=== PATIENT | male | born 1940 | race Caucasian/White ===

== ENCOUNTER 2017-01-17 22:09 | Inpatient (IN) | payer OTHER, MEDICARE ==
[~2017-01-17] VITALS: Ht 175.3 cm; Wt 86.0 kg
[2017-01-17 05:40] VITALS: BP 132/62; PULSE 95; RESP 18; TEMP 98.1; O2SAT 95
[2017-01-17 22:11] VITALS: BP 172/71; PULSE 107; RESP 16; TEMP 99; O2SAT 92
--- NOTE | 2017-01-17 22:17 | PD ---
Physical Exam Time Seen by Provider: 22:15 Narrative 76 y/o male presents for evaluation of cough and congestion for one day. No fevers. 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 Sees Dr. Mayfield. Vital signs reviewed. Seen at triage desk. Awaiting bed placement. Data Data Last Documented VS Vital Signs Date Time Temp Pulse Resp B/P Pulse Ox O2 Delivery O2 Flow Rate FiO2 01/17/17 22:11 99.0 107 16 172/71 92 MDM Medical Record Reviewed: Yes Supervised Visit with CONSUELO: No Darrick Petit January 17, 2017 22:16
[2017-01-17 23:08] VITALS: O2SAT 99
--- NOTE | 2017-01-17 23:15 | RADRPT ---
EXAM DATE/TIME: 01/17/2017 22:54 [place] COMPARISON: No previous studies available for comparison. INDICATIONS : Cough and congestion. MEDICAL HISTORY : Pre-Leukemia. SURGICAL HISTORY : None. ENCOUNTER: Initial ACUITY: 1 day PAIN SCORE: 0/10 LOCATION: Bilateral chest FINDINGS: A single view of the chest demonstrates the lungs to be symmetrically aerated without evidence of mas s, infiltrate or effusion. The cardiomediastinal contours are unremarkable. Osseous structures are intact. CONCLUSION: No acute disease. There is no evidence of pneumonia. Bernard Hughes MD on January 17, 2017 at 23:12 Board Certified Radiologist. This report was verified electronically.
[2017-01-17 23:16] LABS: BLOOD, URINE NEG (NEG); GLUCOSE,URINE NEG (NEG); KETONE, URINE NEG (NEG); NITRITE,URINE NEG (NEG); URINE COLOR YELLOW (YELLW/STRAW)
[2017-01-17 23:18] LABS: COMMENT (UR) CULT NOT INDICATED; CULTURE IF INDICATED CULT NOT INDICATED
[2017-01-17 23:18] LABS: BASOPHIL % 0.7 % (0.0-2.0); EOSINOPHIL % 1.5 % (0.0-4.0); LYMPHOCYTE # 0.5 TH/MM3 (1.0-4.8); MEAN CELL VOLUME 86.1 FL (80.0-100.0); MEAN CORPUSCULAR HEMOGLOBIN 28.6 PG (27.0-34.0); MEAN CORPUSCULAR HGB CONC 33.3 % (32.0-36.0); MONO % 4.1 % (0.0-8.0); NEUT % 32.7 % (16.0-70.0); PLATELET COUNT 48 TH/MM3 (150-450); RED BLOOD COUNT 2.36 MIL/MM3 (4.50-5.90); RED CELL DISTRIBUTION WIDTH 18.6 % (11.6-17.2); WHITE BLOOD COUNT 0.8 TH/MM3 (4.0-11.0)
[2017-01-17 23:20] LABS: HEMO FLAGS AUTO DIFF
[2017-01-17 23:22] LABS: AUTOMATED NEUTROPHIL # 0.3 TH/MM3 (1.8-7.7); HEMATOCRIT 20.3 % (39.0-51.0)
--- NOTE | 2017-01-17 23:30 | PD ---
HPI Chief Complaint: Cold / Flu Symptoms Time Seen by Provider: 22:24 Travel History International Travel<30 days: No Contact w/Intl Traveler<30days: No Traveled to known affect area: No History of Present Illness HPI The patient is a 76 year old male who presents to the [facility] emergency department with a history of postnasal drip, congestion that he reports began earlier today. He reports that he feels like mucous is stuck in his throat. He reports that he took DayQuil, however does not seem to help. He reports that he has a slightly sore throat associated with this. He denies having any chest pain, chest pressure, or shortness of breath. He denies having any fevers associated with this. He does however report that he has been on an antibiotic for the last week related to a skin infection on his legs. He unfortunately cannot recall the name of the antibiotic. The patient's other history is also complicated by having a myelodysplastic syndrome currently under chemotherapy over the last week. He reports that he completed the last dose of chemotherapy today. He reports that 2 weeks ago he did have 2 units of packed red blood cells administered as he has been experiencing pancytopenia related to the myelodysplastic syndrome. His oncologist is Dr. Mayfield. Otherwise on review of systems, the patient denies any neck pain, abdominal pain , vomiting, diarrhea, urinary symptoms, or neurologic symptoms. [facility] Past Medical History Narrative Medical The patient's past medical history is significant for eczema, benign prostatic hypertrophy, history of myelodysplastic syndrome currently on chemotherapy, history of COPD, history of acid reflux, history of being hard of hearing, history of hypertension, peripheral arterial disease. Hx Anticoagulant Therapy: Yes (ASA) Cancer: Yes (MDS/BONE CA) Chemotherapy: Yes Diminished Hearing: Yes Tetanus Vaccination: Unknown Influenza Vaccination: No Past Surgical History Narrative Surgical The patient's past surgical history is significant for carpal tunnel release on the left, vasectomy, knee surgery on the right. Social History Alcohol Use: No Tobacco Use: No Substance Use: No Allergies-Medications (Allergen,Severity, Reaction): Coded Allergies: Zofran (Verified Allergy, Severe, Hives, 01/17/17) Review of Systems Except as stated in HPI: all other systems reviewed are Neg General / Constitutional: No: Fever, Chills Eyes: No: Visual changes HENT: Positive: Sore Throat, Rhinorrhea, Congestion, No: Headaches Cardiovascular: No: Chest Pain or Discomfort Respiratory: Positive: Cough, No: Shortness of Breath Gastrointestinal: No: Abdominal Pain Genitourinary: No: Dysuria Musculoskeletal: No: Pain Skin: No Rash Neurologic: No: Weakness Psychiatric: No: Depression Endocrine: No: Polydipsia Hematologic/Lymphatic: No: Easy Bruising Physical Exam Narrative General: The patient is a well-developed well-nourished male in no acute distress. Head and Neck exam: Head is normocephalic atraumatic. Eyes: EOMI, pupils are equal round and reactive to light. Nose: Midline septum with pink mucous membranes Mouth: Dentition unremarkable. Moist mucus membranes. Posterior oropharynx is mildly erythematous. No tonsillar hypertrophy. Uvula midline. Airway patent. Neck: No palpable lymphadenopathy. No nuchal rigidity. No thyromegaly. Cardiovascular: Regular rate and rhythm without murmurs, gallops, or rubs. Lungs: Clear to auscultation bilaterally. No wheezes, rhonchi, or rales. Abdomen: Soft, without tenderness to palpation in all 4 quadrants of the abdomen. No guarding, rebound, or rigidity. Normal bowel sounds are audible. No tenderness on palpation of McBurney's point. Negative Deluca's sign. Extremities: No clubbing, cyanosis, or edema. No calf tenderness on palpation. Back: No costovertebral angle tenderness to palpation. Neurologic Exam: Grossly nonfocal. Skin Exam: The patient on examination of bilateral lower extremities is noted to have areas of abrasion, erythematous papules/areas of excoriation, currently on antibiotic for this. No signs of cellulitis, drainage, pointing, or vesicle formation. Data Data Last Documented VS Vital Signs Date Time Temp Pulse Resp B/P Pulse Ox O2 Delivery O2 Flow Rate FiO2 01/17/17 23:08 99 Room Air 01/17/17 22:11 99.0 107 16 172/71 Orders Complete Blood Count With Diff (01/17/17 22:42) Basic Metabolic Panel (Bmp) (01/17/17 22:42) Urinalysis - C+S If Indicated (01/17/17 22:42) Chest, Single Ap (01/17/17 22:42) Iv Access Insert/Monitor (01/17/17 22:42) Ecg Monitoring (01/17/17 22:42) Oximetry (01/17/17 22:42) Cefepime Inj (Maxipime Inj) (01/17/17 23:43) Blood Culture (01/17/17 23:43) Type And Screen (01/17/17 23:43) Red Blood Cells (Rbc) (01/17/17 23:43) Blood Product Administration .UPON TRANSFUSION (01/17/17 23:43) Sodium Chlor 0.9% 250 Ml Inj (Ns 250 Ml (01/17/17 23:45) Admit Order (Ed Use Only) (01/18/17 00:58) Labs Laboratory Tests Test 01/17/17 01/17/17 01/17/17 22:00 22:10 23:58 Sodium Level 138 MEQ/L Potassium Level 4.7 MEQ/L Chloride Level 104 MEQ/L Carbon Dioxide Level 27.9 MEQ/L Anion Gap 6 MEQ/L Blood Urea Nitrogen 20 MG/DL Creatinine 1.01 MG/DL Estimat Glomerular Filtration 72 ML/MIN Rate Random Glucose 133 MG/DL Calcium Level 8.5 MG/DL White Blood Count 0.8 TH/MM3 Red Blood Count 2.36 MIL/MM3 Hemoglobin 6.8 GM/DL Hematocrit 20.3 % Mean Corpuscular Volume 86.1 FL Mean Corpuscular Hemoglobin 28.6 PG Mean Corpuscular Hemoglobin 33.3 % Concent Red Cell Distribution Width 18.6 % Platelet Count 48 TH/MM3 Mean Platelet Volume 8.4 FL Neutrophils (%) (Auto) 32.7 % Lymphocytes (%) (Auto) 61.0 % Monocytes (%) (Auto) 4.1 % Eosinophils (%) (Auto) 1.5 % Basophils (%) (Auto) 0.7 % Neutrophils # (Auto) 0.3 TH/MM3 Lymphocytes # (Auto) 0.5 TH/MM3 Monocytes # (Auto) 0.0 TH/MM3 Eosinophils # (Auto) 0.0 TH/MM3 Basophils # (Auto) 0.0 TH/MM3 CBC Comment AUTO DIFF Differential Total Cells 25 Counted Neutrophils % (Manual) 36 % Lymphocytes % 60 % Eosinophils % 4 % Neutrophils # (Manual) 0.3 TH/MM3 Nucleated Red Blood Cells 12 /100 WBC Differential Comment FINAL DIFF MANUAL Platelet Estimate LOW Platelet Morphology Comment NORMAL Tear Drop Cells 1+ Ovalocytes 2+ Urine Color YELLOW Urine Turbidity CLEAR Urine pH 6.0 Urine Specific [place] 1.016 Urine Protein NEG mg/dL Urine Glucose (UA) NEG mg/dL Urine Ketones NEG mg/dL Urine Occult Blood NEG Urine Nitrite NEG Urine Bilirubin NEG Urine Urobilinogen LESS THAN 2.0 MG/DL Urine Leukocyte Esterase NEG Urine RBC LESS THAN 1 /hpf Urine WBC LESS THAN 1 /hpf Microscopic Urinalysis Comment CULT NOT INDICATED Blood Type A POSITIVE Antibody Screen NEGATIVE Crossmatch Leukocyte-Reduced Red Blood Cells Blood Bank Comment MDM Medical Decision Making Medical Screen Exam Complete: Yes Emergency Medical Condition: Yes Medical Record Reviewed: Yes Interpretation(s) Last Impressions Chest X-Ray 01/17/17 2242 Signed Impressions: Service Date/Time: Tuesday, January 17, 2017 22:54 - CONCLUSION: No acute disease. There is no evidence of pneumonia. Bernard Hughes MD Differential Diagnosis Upper respiratory infection with postnasal drip, versus pneumonia, versus neutropenia Narrative Course During the course of the patients emergency department visit, the patients history, examination, and differential diagnosis were reviewed with the patient. The patient had IV access obtained and blood work sent for analysis. The patient was placed on a bus monitor with oximetry and blood pressure monitoring. A chest x-ray was ordered, CBC, BMP was ordered. The patients laboratory studies were reviewed and remarkable for a white count of 0.8, hemoglobin 6.8, platelets 48, with neutrophils 32.7, lymphocytes 61, neutrophil number is 0.3, thus the patient is neutropenic, BMP is remarkable for a BUN of 20, glucose 133, urinalysis is unremarkable. Radiology studies were reviewed and remarkable for a chest x-ray that shows no acute abnormality. Given the patient's anemia and neutropenia, the patient was typed and crossmatched for 2 units of packed red blood cells. The patient was also given cefepime as broad-spectrum antibiotic coverage for neutropenia. The patients results were discussed with the patient, including the plan of care. I explained that further testing and/ or monitoring is indicated based on the patients history, examination, and/ or laboratory findings. Therefore, I recommended admission for additional evaluation. The patient expressed understanding and was agreeable with this plan. The patient was admitted to the hospital in stable condition and [facility] Physician Communication Physician Communication The patient's case was discussed with Dr. Monroy who did agree to admit the patient for further evaluation and treatment at this time. Diagnosis Primary Impression: URI (upper respiratory infection) Qualified Code: J06.9 - Upper respiratory tract infection, unspecified type Additional Impression: Neutropenia Qualified Code: D70.1 - Chemotherapy-induced neutropenia Admitting Information Admitting Physician Requests: Admit Bridgette Giraldo MD January 17, 2017 23:29
[2017-01-17 23:34] LABS: BICARBONATE 27.9 MEQ/L (21.0-32.0); POTASSIUM 4.7 MEQ/L (3.5-5.1)
[2017-01-17] MEDS ORDERED: CEFEPIME INJ 2,000 MG in SODIUM CHLORIDE 0.9% INJ 100 ML IV STA (23:43)
[2017-01-17] MEDS ORDERED: SODIUM CHLOR 0.9% 250 ML INJ 250 ML IV ONE (23:45)
[2017-01-18] VITALS (11 sets, daily range): BP systolic 138–172; BP diastolic 62–78; PULSE 63–100; RESP 15–20; TEMP 97.7–98.9; O2SAT 93–97
[2017-01-18 00:49] LABS: CORRECTED NUCLEATED RBC 12 /100 WBC (0-0); EOSINOPHILS 4 % (0-4); NEUTROPHIL # MANUAL DIFF 0.3 TH/MM3 (1.8-7.7); POLYS (SEG NEUTROPHILS) 36 % (16-70); WBC DIFF SAMPLE 25
[2017-01-18 00:51] LABS: OVALOCYTES 2+ (NORMAL); PLATELET ESTIMATE SMEAR LOW (NORMAL); PLATELET MORPHOLOGY NORMAL (NORMAL); SCAN/DIFF FINAL DIFF MANUAL; TEARDROP RBCS 1+ (NORMAL)
[2017-01-18] MEDS ORDERED: SODIUM CHLORIDE 0.9% FLUSH 10 ML FLUSH IV FLUSH PRN (01:45)
[2017-01-18] MEDS ORDERED: NALOXONE HCL 0.4 MG/ML AMP IV PRN (01:45)
[2017-01-18] MEDS ORDERED: FUROSEMIDE 20 MG/2 ML VIAL IV PUSH PRN (02:45)
--- NOTE | 2017-01-18 03:51 | HHI.HP ---
[facility] Bay Cox MD Admission Diagnosis Neutropenia associated with anemia and upper repiratory infection Diagnoses: (1) Pancytopenia Chief Complaint: productive cough Travel History International Travel<30 Days: No Contact w/Intl Traveler <30 Da: No Traveled to Known Affected Are: No History of Present Illness Written by Charlotte Douglass, acting as scribe for Dr. Monroy on 01/18/17 at 03:57. Mr. 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 The patient is seen in his hospital room. He states "I'm on chemotherapy and I got a cold". Yesterday was last day of chemotherapy for 7 day treatment (on 1 week, off 4 weeks). CXR in ER was negative for acute disease and there's no evidence of pneumonia. Symptoms are severe and not relieved with OTC cold medicines. Symptoms include postnasal drip, sore throat, productive cough with clear sputum. He denies fever. He reports that his blood counts have been low because of chemotherapy and he has received blood transfusions as an outpatient. He also denies any nausea, vomiting, diarrhea, black or red stool, dysuria, or hematuria. 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 Past Surgical History Cyst removed from back of knee . Reported Medications awaiting med rec . Allergies: Coded Allergies: Zofran (Verified Allergy, Severe, Hives, 01/17/17) Active Ordered Medications Current Medications Cefepime HCl 2000 mg/Sodium Chloride 100 ml @ 200 mls/hr ONCE STAT IV Last administered on 01/18/17t 01:04; Start 01/17/17 at 23:43; Stop 01/18/17 at 00:12 ; Status DC Sodium Chloride (NS 250 ml Inj) 250 ml @ 15 mls/hr ONCE ONCE IV Last administered on 01/18/17 01:23; Start 01/17/17 at 23:45; Stop 01/18/17 at 16:24 Sodium Chloride (NS Flush) 2 ml UNSCH PRN IV FLUSH FLUSH AFTER USING IV ACCESS ; Start 01/18/17 at 01:45 Sodium Chloride (NS Flush) 2 ml BID IV FLUSH ; Start 01/18/17 at 09:00 Naloxone HCl 0.4 mg 0.4 mg UNSCH PRN IV SEE LABEL COMMENTS; Start 01/18/17 at 01:45 Cefepime HCl/ Sodium Chloride (Maxipime Inj/NS Inj) 100 ml @ 200 mls/hr Q12H IV ; Start 01/18/17 at 11:00 Furosemide (Lasix Inj) 20 mg UNSCH X1 PRN IV PUSH GIVE BETWEEN UNITS PRBC Last administered on 01/18/17 02:42; Start 01/18/17 at 02:45; Stop 01/18/17 at 12:00 . Family History Sister with iron deficiency anemia . Social History Tobacco: quit smoking 2001 . Physical Exam Vital Signs Vital Signs Date Time Temp Pulse Resp B/P Pulse Ox O2 Delivery O2 Flow Rate FiO2 01/18/17 02:40 80 20 159/78 95 01/18/17 02:06 98.4 95 18 154/63 97 01/18/17 01:45 98.7 87 16 172/68 97 01/17/17 23:08 99 Room Air 01/17/17 22:11 99.0 107 16 172/71 92 Physical Exam GENERAL: This is an elderly male patient, pale in appearance patient, in no apparent distress. SKIN: Blotchy red rash on bilateral shins - states oncologist relates to his chemo treatments. Cool and dry. HEAD: Atraumatic. Normocephalic. EYES: No scleral icterus. No injection or drainage. ENT: Nose without bleeding, purulent drainage. NECK: Trachea midline. No JVD or lymphadenopathy. CARDIOVASCULAR: Regular rate and rhythm without murmurs, gallops, or rubs. RESPIRATORY: Clear to auscultation. Breath sounds equal bilaterally. No wheezes , rales, or rhonchi. GASTROINTESTINAL: Abdomen soft, non-tender, nondistended. No guarding. MUSCULOSKELETAL: Extremities without clubbing, cyanosis, or edema. No calf tenderness. NEUROLOGICAL: Awake and alert. Motor and sensory grossly within normal limits. Normal speech. Laboratory Laboratory Tests Test 01/17/17 01/17/17 01/17/17 22:00 22:10 23:58 Sodium Level 138 Potassium Level 4.7 Chloride Level 104 Carbon Dioxide Level 27.9 Anion Gap 6 Blood Urea Nitrogen 20 Creatinine 1.01 Estimat Glomerular Filtration 72 Rate Random Glucose 133 Calcium Level 8.5 White Blood Count 0.8 Red Blood Count 2.36 Hemoglobin 6.8 Hematocrit 20.3 Mean Corpuscular Volume 86.1 Mean Corpuscular Hemoglobin 28.6 Mean Corpuscular Hemoglobin 33.3 Concent Red Cell Distribution Width 18.6 Platelet Count 48 Mean Platelet Volume 8.4 Neutrophils (%) (Auto) 32.7 Lymphocytes (%) (Auto) 61.0 Monocytes (%) (Auto) 4.1 Eosinophils (%) (Auto) 1.5 Basophils (%) (Auto) 0.7 Neutrophils # (Auto) 0.3 Lymphocytes # (Auto) 0.5 Monocytes # (Auto) 0.0 Eosinophils # (Auto) 0.0 Basophils # (Auto) 0.0 CBC Comment AUTO DIFF Differential Total Cells 25 Counted Neutrophils % (Manual) 36 Lymphocytes % 60 Eosinophils % 4 Neutrophils # (Manual) 0.3 Nucleated Red Blood Cells 12 Differential Comment FINAL DIFF MANUAL Platelet Estimate LOW Platelet Morphology Comment NORMAL Tear Drop Cells 1+ Ovalocytes 2+ Urine Color YELLOW Urine Turbidity CLEAR Urine pH 6.0 Urine Specific [place] 1.016 Urine Protein NEG Urine Glucose (UA) NEG Urine Ketones NEG Urine Occult Blood NEG Urine Nitrite NEG Urine Bilirubin NEG Urine Urobilinogen LESS THAN 2.0 Urine Leukocyte Esterase NEG Urine RBC LESS THAN 1 Urine WBC LESS THAN 1 Microscopic Urinalysis Comment CULT NOT INDICATED Blood Type A POSITIVE Antibody Screen NEGATIVE Crossmatch Leukocyte-Reduced Red Blood Cells Blood Bank Comment Date/Time Procedure Status Source Growth 01/17/17 23:55 Aerobic Blood Culture Received Blood Peripheral Pending 01/17/17 23:55 Anaerobic Blood Culture Received Blood Peripheral Pending Result Diagram: 01/17/17219901/17/172199 Imaging Last Impressions Chest X-Ray 01/17/172241 Signed Impressions: Service Date/Time: Fartun, January 17, 2017 22:54 - CONCLUSION: No acute disease. There is no evidence of pneumonia. Bernard Hughes MD . Assessment and Plan Problem List: (1) Pancytopenia ICD Code: D61.818 Status: Acute (2) Neutropenia ICD Code: D70.9 Status: Acute (3) URI (upper respiratory infection) ICD Code: J06.9 Status: Acute Assessment and Plan Pancytopenia in a patient with MDS - consult patient's oncologist Dr. Mayfield - transfuse 2 units RBCs - recheck CBC in am and follow trends - Neutropenic precautions URI symptoms with neutrophilia - Cefepime 2 gm IV q12h - Monitor white blood count DVT prophylaxis - Teds and SCDs This note was transcribed by [email or web address] [Charlotte Douglass]. I, Dr. Terry Monroy personally performed the history, physical exam, and medical decision making; and confirmed the accuracy of the information in the transcribed note. Authenticated by Dr. Terry Monroy on 01/18/17 at 03:57. Discussed Condition With ER physician, patient, and nurse . Physician Certification 2 Midnight Certification Type: Admission for Inpatient Services Order for Inpatient Services The services are ordered in accordance with Medicare regulations or non- Medicare payer requirements, as applicable. In the case of services not specified as inpatient-only, they are appropriately provided as inpatient services in accordance with the 2-midnight benchmark. Estimated LOS (days): 4 days is the estimated time the patient will need to remain in the hospital, assuming treatment plan goals are met and no additional complications. Post-Hospital Plan: Not yet determined Problem Qualifiers (1) Neutropenia: Qualified Code: D70.1 - Chemotherapy-induced neutropenia (2) URI (upper respiratory infection): Qualified Code: J06.9 - Upper respiratory tract infection, unspecified type Charlotte Douglass January 18, 2017 03:51 Terry Monroy MD Feb 13, 2017 12:33
[2017-01-18] MEDS: CEFEPIME INJ 2,000 MG in SODIUM CHLORIDE 0.9% INJ 100 ML IV SCH ×2 (10:39→21:55)
[2017-01-18] MEDS: SODIUM CHLORIDE 0.9% FLUSH 10 ML FLUSH IV FLUSH SCH ×2 (10:40→21:00)
[2017-01-18] MEDS ORDERED: cloNIDine HCL 0.1 MG TAB PO PRN (10:45)
[2017-01-18] MEDS: DOCUSATE SODIUM 100 MG CAP PO SCH ×2 (10:47→21:53)
[2017-01-18 10:51] LABS: AUTOMATED NEUTROPHIL # 0.4 TH/MM3 (1.8-7.7); BASOPHIL % 0.4 % (0.0-2.0); EOSINOPHIL % 1.5 % (0.0-4.0); HEMATOCRIT 26.2 % (39.0-51.0); LYMPH % 51.7 % (9.0-44.0); LYMPHOCYTE # 0.4 TH/MM3 (1.0-4.8); MEAN CELL VOLUME 85.3 FL (80.0-100.0); MEAN CORPUSCULAR HEMOGLOBIN 29.3 PG (27.0-34.0); MEAN CORPUSCULAR HGB CONC 34.3 % (32.0-36.0); MONO % 1.5 % (0.0-8.0); NEUT % 44.9 % (16.0-70.0); PLATELET COUNT 34 TH/MM3 (150-450); RED BLOOD COUNT 3.08 MIL/MM3 (4.50-5.90); RED CELL DISTRIBUTION WIDTH 17.4 % (11.6-17.2); WHITE BLOOD COUNT 0.8 TH/MM3 (4.0-11.0)
[2017-01-18 10:54] LABS: HEMO FLAGS AUTO DIFF
[2017-01-18 12:45] LABS: CORRECTED NUCLEATED RBC 6 /100 WBC (0-0); EOSINOPHILS 6 % (0-4); NEUTROPHIL # MANUAL DIFF 0.4 TH/MM3 (1.8-7.7); OVALOCYTES 1+ (NORMAL); PLATELET ESTIMATE SMEAR LOW (NORMAL); PLATELET MORPHOLOGY NORMAL (NORMAL); POLYS (SEG NEUTROPHILS) 46 % (16-70); SCAN/DIFF FINAL DIFF MANUAL; WBC DIFF SAMPLE 100
[2017-01-18] MEDS ORDERED: MAGN500T4 PO (14:31)
[2017-01-18] MEDS ORDERED: ASPI-110 PO (14:31)
[2017-01-18] MEDS ORDERED: BENA20TA PO (14:31)
[2017-01-18] MEDS ORDERED: CHOL1TAB29 (14:31)
[2017-01-18] MEDS ORDERED: GLUC1CAP16 (14:31)
[2017-01-18] MEDS ORDERED: FISH500C (14:31)
[2017-01-18] MEDS ORDERED: TAMS0.4C4 PO (14:31)
[2017-01-18] MEDS ORDERED: METO25TA3 PO (14:31)
[2017-01-18] MEDS ORDERED: CO Q10CA (14:31)
[2017-01-18] MEDS ORDERED: B-COCAP9 PO (14:31)
[2017-01-18] MEDS ORDERED: VITACAP31 (14:31)
[2017-01-18] MEDS ORDERED: FINA5TAB2 PO (14:31)
[2017-01-18] MEDS ORDERED: CLAR10CA3 PO (14:31)
[2017-01-18] MEDS ORDERED: DHEA50CA (14:31)
[2017-01-18] MEDS ORDERED: PANT40TA3 PO (14:31)
[2017-01-18] MEDS: PHENOL 1.4% SOLN 180 ML BTL OROPHARYNG SCH ×4 (19:00→23:45)
[2017-01-19] VITALS (7 sets, daily range): BP systolic 126–150; BP diastolic 60–97; PULSE 80–95; RESP 17–18; TEMP 96.9–98.2; O2SAT 92–96
[2017-01-19] MEDS: PHENOL 1.4% SOLN 180 ML BTL OROPHARYNG SCH ×11 (01:44→23:00)
--- NOTE | 2017-01-19 05:40 | MB ---
cc: JASWINDER SAMUELS M.D. DATE OF CONSULTATION 01/18/2017 REASON FOR CONSULTATION Consult requested by hospitalist for evaluation of myelodysplastic syndrome. HISTORY OF PRESENT ILLNESS Humberto is a pleasant 76-year-old male. Recently he was referred to me for evaluation of pancytopenia. The patient underwent bone marrow biopsy which showed high-grade myelodysplastic syndrome. The patient was started on palliative Vidaza chemotherapy recently. He has tolerated the treatment well. The patient presented to the emergency room complaining of sore throat. He had a low-grade fever. He came to the emergency room for further evaluation. He had a chest x-ray which came back negative. CBC revealed severe anemia and the patient is admitted to the hospital. The patient had received blood transfusion. I have been asked to see him for further evaluation. REVIEW OF SYSTEMS The patient is still complaining of sore throat. He denies any fever. He denies any chills. He denies any nausea, vomiting or diarrhea. He has difficulty swallowing. He has some postnasal drip and cough with whitish-clear phlegm. The rest of the review of systems is negative. PAST MEDICAL HISTORY 1. BPH. 2. COPD. 3. Gastroesophageal reflux disease. 4. [id number]. 5. Hypertension. 6. Peripheral arterial disease. 7. Eczema. PAST SURGICAL HISTORY 1. Carpal tunnel release. 2. Colonoscopy. 3. Vasectomy. 4. Right knee surgery. ALLERGIES ZOFRAN. MEDICATIONS Please see EMR. FAMILY HISTORY Mother from old age. Father from prostate cancer with bone metastasis. The patient has two sisters; both are alive and well. He does not have any brothers. She has three sons and a daughter, all alive and well. SOCIAL HISTORY The patient is . He is a retired [employer]. He used to smoke cigarettes, five packs a day for 30 years, quit 45 years ago. He also quit drinking 15 years ago. PHYSICAL EXAMINATION GENERAL: On physical examination is a well-developed, well-nourished elderly white male in no apparent distress. VITAL SIGNS: Temperature 98.9, heart rate 72, blood pressure 145/63. O2 saturation 95% on room air. HEENT: PERRLA. EOMI. Anicteric. No oral lesions are noted. NECK: Supple. LYMPHATICS: There is no cervical, supraclavicular or axillary lymphadenopathy noted. LUNGS: Clear. No wheezing, rhonchi or rales. HEART: Regular rate and rhythm. ABDOMEN: Soft, nontender. No hepatosplenomegaly. EXTREMITIES: No pedal edema. NEUROLOGY: Awake, alert, oriented x 3. SKIN: No significant lesions are noted. ASSESSMENT 1. High-grade myelodysplastic syndrome. 2. Sore throat most likely due to upper respiratory infection. PLAN I have reviewed his available records. I have discussed with the patient and his regarding his infection and severe anemia. He had a CBC yesterday which showed white count 0.8, hemoglobin 6.8, hematocrit 20.3, platelet count is 48. The patient had received 2 units of blood transfusion. CBC today showed white count of 0.8, hemoglobin 9, hematocrit 26.2, platelet count 34. His hemoglobin has improved with the transfusion. The differential count does not show any peripheral blasts. However, he has high-grade myelodysplastic syndrome and he is at high risk to transformation into acute myeloid leukemia. The patient's blood culture has been done. The result of that is still pending. He had a urinalysis which came back normal. He also had a chest x-ray which is normal. The patient has sore throat, most likely due to upper respiratory infection due to his immunocompromised state. My recommendation is to continue to monitor his blood count. If the blood cultures come back negative, then the patient could be safely discharged to home and he could be followed up as an outpatient in our clinic. The patient and his both have asked several questions and these were answered to their satisfaction. Thank you for asking my opinion. MD HUONG Tsai/TIMOTHY /10:51 PM /5:27 AM LUCIAN
[2017-01-19 09:11] LABS: HEMATOCRIT 28.8 % (39.0-51.0); MEAN CELL VOLUME 86.5 FL (80.0-100.0); MEAN CORPUSCULAR HEMOGLOBIN 28.2 PG (27.0-34.0); MEAN CORPUSCULAR HGB CONC 32.6 % (32.0-36.0); PLATELET COUNT 32 TH/MM3 (150-450); RED BLOOD COUNT 3.33 MIL/MM3 (4.50-5.90); RED CELL DISTRIBUTION WIDTH 17.3 % (11.6-17.2); WHITE BLOOD COUNT 0.8 TH/MM3 (4.0-11.0)
[2017-01-19] MEDS: SODIUM CHLORIDE 0.9% FLUSH 10 ML FLUSH IV FLUSH SCH ×2 (09:13→20:59)
[2017-01-19 09:15] LABS: HEMO FLAGS AUTO DIFF
[2017-01-19 09:46] LABS: BICARBONATE 32.1 MEQ/L (21.0-32.0); MAGNESIUM 2.6 MG/DL (1.5-2.5); POTASSIUM 4.5 MEQ/L (3.5-5.1)
[2017-01-19 09:48] LABS: CORRECTED NUCLEATED RBC 9 /100 WBC (0-0); EOSINOPHILS 4 % (0-4); NEUTROPHIL # MANUAL DIFF 0.2 TH/MM3 (1.8-7.7); PLATELET ESTIMATE SMEAR LOW (NORMAL); PLATELET MORPHOLOGY NORMAL (NORMAL); POLYS (SEG NEUTROPHILS) 21 % (16-70); SCAN/DIFF FINAL DIFF MANUAL; WBC DIFF SAMPLE 100
[2017-01-19] MEDS: DOCUSATE SODIUM 100 MG CAP PO SCH ×2 (10:24→20:59)
[2017-01-19] MEDS: CEFEPIME INJ 2,000 MG in SODIUM CHLORIDE 0.9% INJ 100 ML IV SCH ×2 (10:24→20:59)
--- NOTE | 2017-01-19 12:02 | HHI.PR ---
Subjective Remarks Patient feels well still has some cough and itching of throat deneis cp/sob vital signs are stable Objective Vitals Vital Signs Date Time Temp Pulse Resp B/P Pulse Ox O2 Delivery O2 Flow Rate FiO2 01/19/17 08:00 98.2 94 18 150/97 92 01/19/17 04:00 96.9 83 17 145/67 94 01/19/17 00:00 97.5 80 17 149/65 93 01/18/17 20:11 63 01/18/17 20:00 98.6 77 17 150/66 93 01/18/17 16:49 98.7 75 15 138/63 95 01/18/17 12:00 98.9 72 20 145/63 95 I/O 01/18/17 01/18/17 01/18/17 01/19/17 01/19/17 01/19/17 07:00 15:00 23:00 07:00 15:00 23:00 Intake Total 350 ml 240 ml Balance 350 ml 240 ml Intake Oral 240 ml IV Total 100 ml Packed Cells 250 ml # Voids 2 3 Result Diagram: 01/19/1714 01/19/1714 Imaging Last Impressions Chest X-Ray 01/17/17 5662 Signed Impressions: Service Date/Time: Tuesday, January 17, 2017 22:54 - CONCLUSION: No acute disease. There is no evidence of pneumonia. Bernard Hughes MD Objective Remarks GENERAL: This is an elderly male patient, pale in appearance patient, in no apparent distress. SKIN: Blotchy red rash on bilateral shins. Cool and dry. HEAD: Atraumatic. Normocephalic. EYES: No scleral icterus. No injection or drainage. ENT: Nose without bleeding, purulent drainage. NECK: Trachea midline. No JVD or lymphadenopathy. CARDIOVASCULAR: Regular rate and rhythm without murmurs, gallops, or rubs. RESPIRATORY: Clear to auscultation. Breath sounds equal bilaterally. No wheezes , rales, or rhonchi. GASTROINTESTINAL: Abdomen soft, non-tender, nondistended. No guarding. MUSCULOSKELETAL: Extremities without clubbing, cyanosis, or edema. No calf tenderness. NEUROLOGICAL: Awake and alert. Motor and sensory grossly within normal limits. Normal speech. Medications and IVs Current Medications Medications (Trade) Dose Ordered Sig/Jim Route Start Time Stop Time Status Last Admin (NS Flush) 2 ml UNSCH PRN IV FLUSH 01/18/17 01:45 (NS Flush) 2 ml BID IV FLUSH 01/18/17 09:00 01/19/17 09:13 Naloxone HCl 0.4 mg 0.4 mg UNSCH PRN IV 01/18/17 01:45 (Maxipime Inj/NS Inj) 100 ml @ 200 mls/hr Q12H IV 01/18/17 11:00 01/19/17 10:24 (Colace) 100 mg BID PO 01/18/17 10:45 01/19/17 10:24 (Catapres) 0.1 mg Q6H PRN PO 01/18/17 10:45 (Chloraseptic [place]) 2 spray Q2H OROPHARYNG 01/18/17 19:00 01/19/17 10:58 Urinary Catheter: No Vascular Central Line Catheter: No A/P Problem List: (1) Pancytopenia ICD Code: D61.818 Status: Acute Plan: Pancytopenia in a patient with MDS - Hematology consult appreciated - Dr Mayfield - sp transfusion of 2 units of PRBC's - Hemoglobin stable - Continue to monitor CBC. - Neutropenic precautions DVT prophylaxis - Teds and SCDs (2) Neutropenia ICD Code: D70.9 Status: Acute Plan: Continue neutropenic precautions Monitor CBC Continue Cefepime (3) URI (upper respiratory infection) ICD Code: J06.9 Status: Acute Plan: Check Influenza A and B (4) Hyperglycemia ICD Code: R73.9 Status: Acute Plan: check hemoglobin A1C Problem Qualifiers (1) Neutropenia: Qualified Code: D70.1 - Chemotherapy-induced neutropenia (2) URI (upper respiratory infection): Qualified Code: J06.9 - Upper respiratory tract infection, unspecified type Edwin Ghosh MD January 19, 2017 12:02
--- NOTE | 2017-01-19 13:25 | PD.ONC.PN ---
Subjective Subjective Remarks Afebrile overnight. Patient resting in room. He states he is waiting for lunch. Denies bleeding or pain. Patient seen at 12noon. Objective Data Date Time Temp Pulse Resp B/P Pulse Ox O2 Delivery O2 Flow Rate FiO2 01/19/17 12:00 97.7 86 18 134/63 94 01/19/17 08:00 98.2 94 18 150/97 92 01/19/17 04:00 96.9 83 17 145/67 94 01/19/17 00:00 97.5 80 17 149/65 93 01/18/17 20:11 63 01/18/17 20:00 98.6 77 17 150/66 93 01/18/17 16:49 98.7 75 15 138/63 95 01/19/17 01/19/17 01/19/17 07:00 15:00 23:00 Intake Total 240 ml Balance 240 ml Result Diagram: 01/19/17 0814 01/19/17 0814 Laboratory Results Laboratory Tests Test 01/19/17 08:14 White Blood Count 0.8 TH/MM3 Red Blood Count 3.33 MIL/MM3 Hemoglobin 9.4 GM/DL Hematocrit 28.8 % Mean Corpuscular Volume 86.5 FL Mean Corpuscular Hemoglobin 28.2 PG Mean Corpuscular Hemoglobin 32.6 % Concent Red Cell Distribution Width 17.3 % Platelet Count 32 TH/MM3 Mean Platelet Volume 8.3 FL Neutrophils (%) (Auto) % Lymphocytes (%) (Auto) % Monocytes (%) (Auto) % Eosinophils (%) (Auto) % Basophils (%) (Auto) % Neutrophils # (Auto) TH/MM3 Lymphocytes # (Auto) TH/MM3 Monocytes # (Auto) TH/MM3 Eosinophils # (Auto) TH/MM3 Basophils # (Auto) TH/MM3 CBC Comment AUTO DIFF Differential Total Cells 100 Counted Neutrophils % (Manual) 21 % Lymphocytes % 74 % Monocytes % 1 % Eosinophils % 4 % Neutrophils # (Manual) 0.2 TH/MM3 Nucleated Red Blood Cells 9 /100 WBC Differential Comment FINAL DIFF MANUAL Platelet Estimate LOW Platelet Morphology Comment NORMAL Sodium Level 137 MEQ/L Potassium Level 4.5 MEQ/L Chloride Level 100 MEQ/L Carbon Dioxide Level 32.1 MEQ/L Anion Gap 5 MEQ/L Blood Urea Nitrogen 20 MG/DL Creatinine 0.93 MG/DL Estimat Glomerular Filtration 79 ML/MIN Rate Random Glucose 123 MG/DL Calcium Level 8.8 MG/DL Magnesium Level 2.6 MG/DL Culture Results Microbiology Date/Time Procedure Status Source Growth 01/17/17 23:50 Aerobic Blood Culture - Preliminary Resulted Blood Peripheral NO GROWTH IN 1 DAY 01/17/17 23:50 Anaerobic Blood Culture - Preliminary Resulted Blood Peripheral NO GROWTH IN 1 DAY 01/17/17 23:55 Aerobic Blood Culture - Preliminary Resulted Blood Peripheral NO GROWTH IN 1 DAY 01/17/17 23:55 Anaerobic Blood Culture - Preliminary Resulted Blood Peripheral NO GROWTH IN 1 DAY 01/19/17 10:20 Influenza Types A,B Antigen (GHADA) Received Nasal Washing Pending Administered Medications Medications (Trade) Dose Ordered Sig/Jim Route PRN Reason Start Time Stop Time Status Last Admin Dose Admin Sodium Chloride 2 ml 2 ml BID IV FLUSH 01/18/17 09:00 01/19/17 09:13 Cefepime HCl/ Sodium Chloride (Maxipime Inj/NS Inj) 100 ml @ 200 mls/hr Q12H IV 01/18/17 11:00 01/19/17 10:24 Docusate Sodium (Colace) 100 mg BID PO 01/18/17 10:45 01/19/17 10:24 Phenol (Chloraseptic [place]) 2 spray Q2H OROPHARYNG 01/18/17 19:00 01/19/17 10:58 Objective Remarks GENERAL: Elderly male, sitting up in chair in nad. SKIN: Warm and dry. HEAD: Normocephalic. EYES: No injection or drainage. NECK: Supple, trachea midline. CARDIOVASCULAR: Regular rate and rhythm RESPIRATORY: Breath sounds equal bilaterally. No accessory muscle use. GASTROINTESTINAL: Abdomen soft, non-tender, nondistended. EXTREMITIES: No cyanosis MUSCULOSKELETAL: Adequate muscle tone. NEUROLOGICAL: No obvious focal deficit. Awake, alert, and oriented x3. Assessment/Plan Problem List: (1) Pancytopenia Status: Acute Plan: 01/19: will follow up in clinic for further Vidaza once discharged --due to MDS --s/p 2 units pRBC (2) Neutropenic fever Status: Acute Plan: --BC no growth --on Cefepime Assessment 76y/o male with newly diagnosed myelodysplastic syndrome recently started on Vidaza. Admitted with neutropenic fever Attending Statement c/o sore throat. No Fevers HB is stable after PRBC continue cefapime. BC so far neg. If remains negative by tomorrow then ok to d/c. Re Jackson January 19, 2017 13:25 Amy Mayfield MD January 19, 2017 22:34
[2017-01-20] VITALS: BP 145/65; PULSE 84; RESP 17; TEMP 97.3; O2SAT 92
[2017-01-20] MEDS: PHENOL 1.4% SOLN 180 ML BTL OROPHARYNG SCH ×6 (00:49→11:00)
[2017-01-20 04:00] VITALS: BP 140/68; PULSE 84; RESP 18; TEMP 97.4; O2SAT 94
[2017-01-20 07:01] LABS: HEMATOCRIT 27.6 % (39.0-51.0); MEAN CELL VOLUME 85.8 FL (80.0-100.0); MEAN CORPUSCULAR HGB CONC 33.9 % (32.0-36.0); PLATELET COUNT 28 TH/MM3 (150-450); RED BLOOD COUNT 3.22 MIL/MM3 (4.50-5.90); RED CELL DISTRIBUTION WIDTH 17.2 % (11.6-17.2); WHITE BLOOD COUNT 0.8 TH/MM3 (4.0-11.0)
[2017-01-20 07:06] LABS: HEMO FLAGS AUTO DIFF
[2017-01-20 07:23] LABS: ALT (GPT) 16 U/L (12-78); ANION GAP 4 MEQ/L (5-15); AST (GOT) 26 U/L (15-37); BICARBONATE 30.7 MEQ/L (21.0-32.0); BLOOD UREA NITROGEN 20 MG/DL (7-18); CHLORIDE 103 MEQ/L (98-107); GLOMERULAR FILTRATION RATE 95 ML/MIN (>89); MAGNESIUM 2.5 MG/DL (1.5-2.5); POTASSIUM 4.7 MEQ/L (3.5-5.1); SODIUM (NA) 138 MEQ/L (136-145)
[2017-01-20 07:26] LABS: ALKALINE PHOSPHATASE 94 U/L (45-117); TOTAL BILIRUBIN ADULT 0.8 MG/DL (0.2-1.0)
--- NOTE | 2017-01-20 07:33 | PD.ONC.PN ---
Subjective Subjective Remarks sore throat is almost resolve. No more dysphagia. wants to go home. Objective Data Date Time Temp Pulse Resp B/P Pulse Ox O2 Delivery O2 Flow Rate FiO2 01/20/17 04:00 97.4 84 18 140/68 94 01/20/17 00:00 97.3 84 17 145/65 92 01/19/17 20:10 86 01/19/17 20:00 97.8 95 17 140/66 94 01/19/17 16:00 98.0 86 18 126/60 96 01/19/17 12:00 97.7 86 18 134/63 94 01/19/17 08:00 98.2 94 18 150/97 92 Result Diagram: 01/20/17 0615 01/20/17 0615 Laboratory Results Laboratory Tests Test 01/19/17 01/20/17 08:14 06:15 White Blood Count 0.8 TH/MM3 0.8 TH/MM3 Red Blood Count 3.33 MIL/MM3 3.22 MIL/MM3 Hemoglobin 9.4 GM/DL 9.3 GM/DL Hematocrit 28.8 % 27.6 % Mean Corpuscular Volume 86.5 FL 85.8 FL Mean Corpuscular Hemoglobin 28.2 PG 29.0 PG Mean Corpuscular Hemoglobin 32.6 % 33.9 % Concent Red Cell Distribution Width 17.3 % 17.2 % Platelet Count 32 TH/MM3 28 TH/MM3 Mean Platelet Volume 8.3 FL 8.2 FL Neutrophils (%) (Auto) % % Lymphocytes (%) (Auto) % % Monocytes (%) (Auto) % % Eosinophils (%) (Auto) % % Basophils (%) (Auto) % % Neutrophils # (Auto) TH/MM3 TH/MM3 Lymphocytes # (Auto) TH/MM3 TH/MM3 Monocytes # (Auto) TH/MM3 TH/MM3 Eosinophils # (Auto) TH/MM3 TH/MM3 Basophils # (Auto) TH/MM3 TH/MM3 CBC Comment AUTO DIFF AUTO DIFF Differential Total Cells 100 Counted Neutrophils % (Manual) 21 % Lymphocytes % 74 % Monocytes % 1 % Eosinophils % 4 % Neutrophils # (Manual) 0.2 TH/MM3 Nucleated Red Blood Cells 9 /100 WBC Differential Comment FINAL DIFF MANUAL Platelet Estimate LOW Platelet Morphology Comment NORMAL Sodium Level 137 MEQ/L 138 MEQ/L Potassium Level 4.5 MEQ/L 4.7 MEQ/L Chloride Level 100 MEQ/L 103 MEQ/L Carbon Dioxide Level 32.1 MEQ/L 30.7 MEQ/L Anion Gap 5 MEQ/L 4 MEQ/L Blood Urea Nitrogen 20 MG/DL 20 MG/DL Creatinine 0.93 MG/DL 0.79 MG/DL Estimat Glomerular Filtration 79 ML/MIN 95 ML/MIN Rate Random Glucose 123 MG/DL 109 MG/DL Calcium Level 8.8 MG/DL 8.8 MG/DL Magnesium Level 2.6 MG/DL 2.5 MG/DL Phosphorus Level 2.7 MG/DL Total Bilirubin 0.8 MG/DL Aspartate Amino Transf 26 U/L (AST/SGOT) Alanine Aminotransferase 16 U/L (ALT/SGPT) Alkaline Phosphatase 94 U/L Total Protein 6.9 GM/DL Albumin 3.5 GM/DL Culture Results Microbiology Date/Time Procedure Status Source Growth 01/17/17 23:50 Aerobic Blood Culture - Preliminary Resulted Blood Peripheral NO GROWTH IN 1 DAY 01/17/17 23:50 Anaerobic Blood Culture - Preliminary Resulted Blood Peripheral NO GROWTH IN 1 DAY 01/17/17 23:55 Aerobic Blood Culture - Preliminary Resulted Blood Peripheral NO GROWTH IN 1 DAY 01/17/17 23:55 Anaerobic Blood Culture - Preliminary Resulted Blood Peripheral NO GROWTH IN 1 DAY 01/19/17 10:20 Influenza Types A,B Antigen (GHADA) - Final Complete Nasal Washing NEGATIVE FOR FLU A AND B ANTIGEN.... Administered Medications Medications (Trade) Dose Ordered Sig/Jim Route PRN Reason Start Time Stop Time Status Last Admin Dose Admin Sodium Chloride 2 ml 2 ml BID IV FLUSH 01/18/17 09:00 01/19/17 20:59 Cefepime HCl/ Sodium Chloride (Maxipime Inj/NS Inj) 100 ml @ 200 mls/hr Q12H IV 01/18/17 11:00 01/19/17 20:59 Docusate Sodium (Colace) 100 mg BID PO 01/18/17 10:45 01/19/17 20:59 Phenol (Chloraseptic [place]) 2 spray Q2H OROPHARYNG 01/18/17 19:00 01/19/17 21:00 Objective Remarks GENERAL: Elderly male, sitting up in chair in nad. SKIN: Warm and dry. HEAD: Normocephalic. EYES: No injection or drainage. NECK: Supple, trachea midline. CARDIOVASCULAR: Regular rate and rhythm RESPIRATORY: Breath sounds equal bilaterally. No accessory muscle use. GASTROINTESTINAL: Abdomen soft, non-tender, nondistended. EXTREMITIES: No cyanosis MUSCULOSKELETAL: Adequate muscle tone. NEUROLOGICAL: No obvious focal deficit. Awake, alert, and oriented x3. Assessment/Plan Problem List: (1) Pancytopenia Status: Acute Plan: 01/20 BC are negative. Never had fever. HAs URI symptoms. Resolve with antibiotics. Blood counts are stable. OK to d/c today. Has FU appt with me sign off available prn. 01/19: will follow up in clinic for further Vidaza once discharged --due to MDS --s/p 2 units pRBC (2) Neutropenic fever Status: Acute Plan: --BC no growth --on Cefepime Assessment 76y/o male with newly diagnosed myelodysplastic syndrome recently started on Vidaza. Admitted with neutropenic fever Amy Mayfield MD January 20, 2017 07:33
[2017-01-20 07:44] LABS: CORRECTED NUCLEATED RBC 5 /100 WBC (0-0); EOSINOPHILS 3 % (0-4); POLYS (SEG NEUTROPHILS) 25 % (16-70); WBC DIFF SAMPLE 100
[2017-01-20 07:45] LABS: OVALOCYTES 1+ (NORMAL)
[2017-01-20 07:46] LABS: NEUTROPHIL # MANUAL DIFF 0.2 TH/MM3 (1.8-7.7); PLATELET ESTIMATE SMEAR LOW (NORMAL); PLATELET MORPHOLOGY NORMAL (NORMAL); SCAN/DIFF FINAL DIFF MANUAL
[2017-01-20 08:00] VITALS: BP 134/67; PULSE 94; RESP 16; TEMP 96.4; O2SAT 92
[2017-01-20] MEDS: SODIUM CHLORIDE 0.9% FLUSH 10 ML FLUSH IV FLUSH SCH (09:31)
[2017-01-20] MEDS: CEFEPIME INJ 2,000 MG in SODIUM CHLORIDE 0.9% INJ 100 ML IV SCH (09:31)
[2017-01-20] MEDS: DOCUSATE SODIUM 100 MG CAP PO SCH (09:31)
[2017-01-20] MEDS ORDERED: CEPH-460 PO (14:23)
--- NOTE | 2017-01-20 14:24 | HHI.DCPOC ---
Discharge Care Plan Diagnosis: (1) Pancytopenia (2) Neutropenia (3) URI (upper respiratory infection) (4) Hyperglycemia (5) Neutropenic fever Goals to Promote Your Health * To prevent worsening of your condition and complications * To maintain your health at the optimal level Directions to Meet Your Goals Take your medications as prescribed Follow your dietary instruction Follow activity as directed Keep your appointments as scheduled Take your immunizations and boosters as scheduled If your symptoms worsen call your PCP, if no PCP go to Urgent Care Center or Emergency Room Smoking is Dangerous to Your Health. Avoid second hand smoke Call the 24-hour hour crisis hotline for domestic abuse at Edwin Ghosh MD January 20, 2017 14:24
--- NOTE | 2017-01-20 16:15 | HHI.DS ---
Discharge Summary Admission Date January 18, 2017 at 01:00 Discharge Date: January 20, 2017 Admitting Diagnosis Neutropenia associated with anemia and upper repiratory infection (1) Pancytopenia ICD Code: D61.818 Diagnosis: Principal (2) Neutropenia ICD Code: D70.9 Diagnosis: Principal (3) URI (upper respiratory infection) ICD Code: J06.9 Diagnosis: Principal (4) Hyperglycemia ICD Code: R73.9 Diagnosis: Principal Procedures none Brief History - From Admission Written by Charlotte Douglass, acting as scribe for Dr. Monroy on 01/18/17 at 03:57. Mr. 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 The patient is seen in his hospital room. He states "I'm on chemotherapy and I got a cold". Yesterday was last day of chemotherapy for 7 day treatment (on 1 week, off 4 weeks). CXR in ER was negative for acute disease and there's no evidence of pneumonia. Symptoms are severe and not relieved with OTC cold medicines. Symptoms include postnasal drip, sore throat, productive cough with clear sputum. He denies fever. He reports that his blood counts have been low because of chemotherapy and he has received blood transfusions as an outpatient. He also denies any nausea, vomiting, diarrhea, black or red stool, dysuria, or hematuria. CBC/BMP: 01/20/17 0615 01/20/17 0615 Significant Findings Laboratory Tests Test 01/17/17 01/18/17 01/19/17 01/20/17 22:00 10:13 08:14 06:15 Blood Urea Nitrogen 20 MG/DL (7-18) 20 MG/DL (7-18) 20 MG/DL (7-18) Estimat Glomerular Filtration 72 ML/MIN (>89) 79 ML/MIN (>89) Rate Random Glucose 133 MG/DL 123 MG/DL 109 MG/DL (74-106) (74-106) (74-106) White Blood Count 0.8 TH/MM3 0.8 TH/MM3 0.8 TH/MM3 0.8 TH/MM3 (4.0-11.0) (4.0-11.0) (4.0-11.0) (4.0-11.0) Red Blood Count 2.36 MIL/MM3 3.08 MIL/MM3 3.33 MIL/MM3 3.22 MIL/MM3 (4.50-5.90) (4.50-5.90) (4.50-5.90) (4.50-5.90) Hemoglobin 6.8 GM/DL 9.0 GM/DL 9.4 GM/DL 9.3 GM/DL (13.0-17.0) (13.0-17.0) (13.0-17.0) (13.0-17.0) Hematocrit 20.3 % 26.2 % 28.8 % 27.6 % (39.0-51.0) (39.0-51.0) (39.0-51.0) (39.0-51.0) Red Cell Distribution Width 18.6 % 17.4 % 17.3 % (11.6-17.2) (11.6-17.2) (11.6-17.2) Platelet Count 48 TH/MM3 34 TH/MM3 32 TH/MM3 28 TH/MM3 (150-450) (150-450) (150-450) (150-450) Lymphocytes (%) (Auto) 61.0 % 51.7 % (9.0-44.0) (9.0-44.0) Neutrophils # (Auto) 0.3 TH/MM3 0.4 TH/MM3 (1.8-7.7) (1.8-7.7) Lymphocytes # (Auto) 0.5 TH/MM3 0.4 TH/MM3 (1.0-4.8) (1.0-4.8) Lymphocytes % 60 % (9-44) 74 % (9-44) 71 % (9-44) Neutrophils # (Manual) 0.3 TH/MM3 0.4 TH/MM3 0.2 TH/MM3 0.2 TH/MM3 (1.8-7.7) (1.8-7.7) (1.8-7.7) (1.8-7.7) Nucleated Red Blood Cells 12 /100 WBC 6 /100 WBC 9 /100 WBC 5 /100 WBC (0-0) (0-0) (0-0) (0-0) Platelet Estimate LOW (NORMAL) LOW (NORMAL) LOW (NORMAL) LOW (NORMAL) Tear Drop Cells 1+ (NORMAL) Ovalocytes 2+ (NORMAL) 1+ (NORMAL) 1+ (NORMAL) Eosinophils % 6 % (0-4) Carbon Dioxide Level 32.1 MEQ/L (21.0-32.0) Magnesium Level 2.6 MG/DL (1.5-2.5) Anion Gap 4 MEQ/L (5-15) Imaging Last Impressions Chest X-Ray 01/17/17 [id number] Signed Impressions: Service Date/Time: Tuesday, January 17, 2017 22:54 - CONCLUSION: No acute disease. There is no evidence of pneumonia. Bernard Hughes MD PE at Discharge GENERAL: This is an elderly male patient, pale in appearance patient, in no apparent distress. SKIN: Blotchy red rash on bilateral shins. Cool and dry. HEAD: Atraumatic. Normocephalic. EYES: No scleral icterus. No injection or drainage. ENT: Nose without bleeding, purulent drainage. NECK: Trachea midline. No JVD or lymphadenopathy. CARDIOVASCULAR: Regular rate and rhythm without murmurs, gallops, or rubs. RESPIRATORY: Clear to auscultation. Breath sounds equal bilaterally. No wheezes , rales, or rhonchi. GASTROINTESTINAL: Abdomen soft, non-tender, nondistended. No guarding. MUSCULOSKELETAL: Extremities without clubbing, cyanosis, or edema. No calf tenderness. NEUROLOGICAL: Awake and alert. Motor and sensory grossly within normal limits. Normal speech. Pt update on day of discharge Patient feels better. Denies fevers/chills. Sorethroat has almost completely resolved. patient cleared to be discharged by oncology. Hospital Course 76y/o male with newly diagnosed myelodysplastic syndrome recently started on Vidaza. Admitted with neutropenic fever (1) Pancytopenia Pancytopenia in a patient with MDS - Hematology consulted - Dr Mayfield - sp transfusion of 2 units of PRBC's - Hemoglobin stable - Continue to monitor CBC. - Neutropenic precautions - Dischrged home on PO Keflex (2) Neutropenia Placed on neutropenic precautions Monitored CBC Treated w IV Cefepime. (3) URI (upper respiratory infection) Influenza A and B negative (4) Hyperglycemia check hemoglobin A1C as an outpatient Pt Condition on Discharge: Stable Discharge Disposition: Discharge Home Discharge Time: <= 30 minutes Discharge Instructions DIET: Follow Instructions for: As Tolerated, No Restrictions Activities you can perform: Regular-No Restrictions Follow up Referrals: Oncology - 1 Week New Medications: Cephalexin (Keflex) 500 Mg Cap 500 MG PO Q6H Infection #20 Ref 0 CAP Continued Medications: Aspirin DR (Aspirin 81) 81 Mg Tabdr 81 MG PO DAILY Ref 0 TAB B-Complex W/Biotin & Folic Acid (Super B-Complex) 1 Cap 1 CAP PO #1 BOTTLE Benazepril (Benazepril) 20 Mg Tab 20 MG PO DAILY Blood Pressure Management #30 Ref 0 TAB Cholecalciferol (D3 2000) 2,000 Unit Tab Coenzyme Q10 (Ubidecarenone) (Co Q 10) 10 Mg Cap Finasteride (Finasteride) 5 Mg Tab 5 MG PO DAILY Do not crush. Manage Prostate Problems #30 Ref 0 TAB Yqlwkptisog-Mqhehrsrssh-Xag C- (Glucosamine Chondroitin) 1 Cap Cap Loratadine (Claritin) 10 Mg Cap 10 MG PO DAILY Allergy Management Ref 0 CAP Magnesium (Magnesium) 500 Mg Tab 500 MG PO DAILY Nutritional Supplement Ref 0 TAB Metoprolol Tartrate (Metoprolol Tartrate) 25 Mg Tab 25 MG PO DAILY #30 Ref 0 TAB Nutritional Supplements (Dhea 15-50 mg) 1 Cap Cap [place]-3 Fatty Acids (Fish Oil) 500 Mg Cap Pantoprazole (Pantoprazole) 40 Mg Tab 40 MG PO DAILY Reflux #30 Ref 0 TAB Tamsulosin (Tamsulosin) 0.4 Mg Cap 0.4 MG PO HS Manage Prostate Problems #30 Ref 0 CAP Vitamins C & E (Vitamin C & E 500-400 mg-Unit) 1 Cap Cap Edwin Ghosh MD January 20, 2017 16:15
== END 2017-01-20 15:50 | disposition home or self-care (01) | DRG 810 ==
LOC: NEPE 22:09 → NEDA 01-18 01:00 → HOCB 01-18 03:03
PROVIDERS: ADMIT Hospitalist; ATTEND Hospitalist
PROC: 30233N1 Transfusion of Nonautologous Red Blood Cells into Peripheral Vein, Percutaneous Approach (ICD-10-PCS; principal; 2017-01-18)
DX: D61.818 Other pancytopenia (principal); D70.3 Neutropenia due to infection; J44.9 Chronic obstructive pulmonary disease, unspecified; R50.81 Fever presenting with conditions classified elsewhere; I10 Essential (primary) hypertension; D46.9 Myelodysplastic syndrome, unspecified; H91.90 Unspecified hearing loss, unspecified ear; K21.9 Gastro-esophageal reflux disease without esophagitis; N40.0 Benign prostatic hyperplasia without lower urinary tract symptoms; I73.9 Peripheral vascular disease, unspecified; J02.9 Acute pharyngitis, unspecified; L30.9 Dermatitis, unspecified; R73.9 Hyperglycemia, unspecified; Z87.891 Personal history of nicotine dependence; J06.9 Acute upper respiratory infection, unspecified
CPT/HCPCS: 36430; 71010; 80048; 80053; 81001; 83735; 84100; 85007; 85027; 86850; 86900; 86901; 86920; 87040; 87804; 96401; 99285; J0692; J1940; J7050; J9025; P9016; Q0166

== ENCOUNTER 2017-01-22 12:41 | Inpatient (IN) | payer OTHER, MEDICARE ==
[~2017-01-22 12:41] MED LIST: ASPI-110 PO; B-COCAP9 PO; BENA20TA PO; CEPH-460 PO; CHOL1TAB29; CLAR10CA3 PO; CO Q10CA; DHEA50CA; FINA5TAB2 PO; FISH500C; GLUC1CAP16; MAGN500T4 PO; METO25TA3 PO; PANT40TA3 PO; TAMS0.4C4 PO; VITACAP31
[2017-01-22 12:42] VITALS: BP 145/65; PULSE 92; RESP 24; TEMP 98.5; O2SAT 95
--- NOTE | 2017-01-22 13:29 | RADRPT ---
EXAM DATE/TIME: 01/22/2017 13:14 [facility] COMPARISON: CHEST SINGLE AP, January 17, 2017, 22:54. INDICATIONS : Cough, congestion MEDICAL HISTORY : Pre-Leukemia. SURGICAL HISTORY : None. ENCOUNTER: Initial ACUITY: 3 days PAIN SCORE: 0/10 LOCATION: Bilateral chest FINDINGS: A single view of the chest demonstrates the lungs to be symmetrically aerated without evidence of mas s, infiltrate or effusion. The cardiomediastinal contours are unremarkable. Osseous structures are intact. CONCLUSION: Normal examination. Bharat Rosenbaum MD on January 22, 2017 at 13:27 Board Certified Radiologist. This report was verified electronically.
[2017-01-22 13:39] LABS: AUTOMATED NEUTROPHIL # 0.2 TH/MM3 (1.8-7.7); BASOPHIL % 0.3 % (0.0-2.0); EOSINOPHIL % 4.8 % (0.0-4.0); HEMATOCRIT 25.5 % (39.0-51.0); LYMPH % 59.4 % (9.0-44.0); LYMPHOCYTE # 0.5 TH/MM3 (1.0-4.8); MEAN CELL VOLUME 85.6 FL (80.0-100.0); MEAN CORPUSCULAR HEMOGLOBIN 28.9 PG (27.0-34.0); MEAN CORPUSCULAR HGB CONC 33.7 % (32.0-36.0); MONO % 11.3 % (0.0-8.0); NEUT % 24.2 % (16.0-70.0); PLATELET COUNT 22 TH/MM3 (150-450); RED BLOOD COUNT 2.98 MIL/MM3 (4.50-5.90); RED CELL DISTRIBUTION WIDTH 17.1 % (11.6-17.2); WHITE BLOOD COUNT 0.8 TH/MM3 (4.0-11.0)
[2017-01-22 13:49] LABS: APTT (PATIENT) 33.1 SEC (24.3-30.1); HEMO FLAGS AUTO DIFF; PROTHROMBIN TIME - PATIENT 10.6 SEC (9.8-11.6)
[2017-01-22 14:00] LABS: ANION GAP 7 MEQ/L (5-15); AST (GOT) 34 U/L (15-37); BICARBONATE 30.1 MEQ/L (21.0-32.0); BLOOD UREA NITROGEN 16 MG/DL (7-18); CHLORIDE 100 MEQ/L (98-107); GLOMERULAR FILTRATION RATE 76 ML/MIN (>89); POTASSIUM 4.4 MEQ/L (3.5-5.1); SODIUM (NA) 137 MEQ/L (136-145)
[2017-01-22 14:10] LABS: ALKALINE PHOSPHATASE 97 U/L (45-117); ALT (GPT) 24 U/L (12-78); TOTAL BILIRUBIN ADULT 0.6 MG/DL (0.2-1.0)
--- NOTE | 2017-01-22 14:18 | PD ---
HPI Chief Complaint: ENT Complaint Time Seen by Provider: 13:02 Travel History International Travel<30 days: No Contact w/Intl Traveler<30days: No Traveled to known affect area: No History of Present Illness HPI 76 years old male complains of severe sore throat or dysphagia, and persistent productive cough. 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 Patient was admitted on January 18, 2017 and discharged January 20, 2017. Patient had URI symptoms and patient was admitted and put on antibiotic. Blood culture was found to be negative. Patient was given blood transfusion. Patient was discharged home yesterday. Patient states that he has increasing sore throat and was unable to eat much since discharge. Patient continued to have productive cough and a lot of spitting up plain. Patient was advised by Dr. Neal oncologist on-call today to go back to ED for reevaluation. Patient denies any fever at home. Patient denies any headache. Patient denies any chest pain or shortness of breath. Patient denies abdominal pain. Patient denies any nausea vomiting diarrhea. Patient denies any back pain. PFSH Past Medical History Hx Anticoagulant Therapy: Yes (ASA ) Cancer: Yes (MDS/BONE CA) Cardiovascular Problems: Yes Chemotherapy: Yes (ON GOING ) Diminished Hearing: Yes Endocrine: No GERD: Yes Genitourinary: No Musculoskeletal: No Neurologic: No Psychiatric: No Reproductive: No Respiratory: No Radiation Therapy: No Past Surgical History Other Surgery: Yes Social History Alcohol Use: No Tobacco Use: No Substance Use: No Allergies-Medications (Allergen,Severity, Reaction): Coded Allergies: Zofran (Verified Allergy, Severe, Hives, 01/17/17) Reported Meds & Prescriptions Reported Meds & Active Scripts Active Keflex (Cephalexin) 500 Mg Cap 500 Mg PO Q6H Reported Benazepril (Benazepril HCl) 20 Mg Tab 20 Mg PO DAILY Finasteride 5 Mg Tab 5 Mg PO DAILY Do not crush. Pantoprazole (Pantoprazole Sodium) 40 Mg Tab 40 Mg PO DAILY Tamsulosin (Tamsulosin HCl) 0.4 Mg Cap 0.4 Mg PO HS Metoprolol Tartrate 25 Mg Tab 25 Mg PO DAILY Claritin (Loratadine) 10 Mg Cap 10 Mg PO DAILY Fish Oil ([place]-3 Fatty Acids) 500 Mg Cap Vitamin C & E 500-400 mg-Unit (Vitamins C & E) 1 Cap Cap Glucosamine Chondroitin (Xjepwpelwsp-Jzcjwefwzsn-Fxd C-) 1 Cap Cap Super B-Complex (B-Complex W/Biotin & Folic Acid) 1 Cap 1 Cap PO Aspirin 81 (Aspirin) 81 Mg Tabdr 81 Mg PO DAILY D3 2000 (Cholecalciferol) 2,000 Unit Tab Co Q 10 (Coenzyme Q10 (Ubidecarenone)) 10 Mg Cap Dhea 15-50 mg (Nutritional Supplements) 1 Cap Cap Magnesium 500 Mg Tab 500 Mg PO DAILY Review of Systems General / Constitutional: No: Fever Eyes: No: Visual changes HENT: Positive: Sore Throat, No: Headaches Cardiovascular: No: Chest Pain or Discomfort Respiratory: No: Shortness of Breath Gastrointestinal: Positive: Dysphagia, No: Abdominal Pain Genitourinary: No: Dysuria Musculoskeletal: No: Pain Skin: No Rash Neurologic: No: Weakness Psychiatric: No: Depression Endocrine: No: Polydipsia Hematologic/Lymphatic: No: Easy Bruising Physical Exam Narrative GENERAL: Well-nourished, well-developed patient. SKIN: Focused skin assessment warm/dry. HEAD: Normocephalic. EYES: No scleral icterus. No injection or drainage. NECK: Supple, Trachea midline. CARDIOVASCULAR: Regular rate and rhythm without murmurs, gallops, or rubs. RESPIRATORY: Breath sounds equal bilaterally. No accessory muscle use. GASTROINTESTINAL: Abdomen soft, non-tender, nondistended. MUSCULOSKELETAL: No cyanosis, or edema. BACK: Nontender without obvious deformity. No CVA tenderness. Data Data Last Documented VS Vital Signs Date Time Temp Pulse Resp B/P Pulse Ox O2 Delivery O2 Flow Rate FiO2 01/22/17 15:39 79 18 130/57 96 01/22/17 13:31 Room Air 01/22/17 12:42 98.5 Orders Complete Blood Count With Diff (01/22/17 13:11) Comprehensive Metabolic Panel (01/22/17 13:11) Prothrombin Time / Inr (Pt) (01/22/17 13:11) Act Partial Throm Time (Ptt) (01/22/17 13:11) Thyroid Stimulating Hormone (01/22/17 13:11) Group A Rapid Strep Screen (01/22/17 13:11) Chest, Single Ap (01/22/17 13:11) Iv Access Insert/Monitor (01/22/17 13:11) Ecg Monitoring (01/22/17 13:11) Oximetry (01/22/17 13:11) Ct Soft Tiss Neck W Iv Cont (01/22/17 ) Ct Thorax/ Chest W Iv Contrast (01/22/17 ) Strep Culture (Group A) (01/22/17 13:20) Equip, Isolation Cart (01/22/17 14:10) Isolation (01/22/17 14:11) Sodium Chlor 0.9% 1000 Ml Inj (Ns 1000 M (01/22/17 14:30) Iohexol 350 Inj (Omnipaque 350 Inj) (01/22/17 14:59) Cefepime Inj (Maxipime Inj) (01/22/17 16:30) Azithromycin Inj (Zithromax Inj) (01/22/17 16:30) Dexamethasone Inj (Decadron Inj) (01/22/17 16:30) Sodium Chlor 0.9% 1000 Ml Inj (Ns 1000 M (01/22/17 16:30) Filgrastim Inj (Neupogen Inj) (01/22/17 16:30) Consult Medical Oncology (01/22/17 ) Labs Laboratory Tests Test 01/22/17 13:20 White Blood Count 0.8 TH/MM3 Red Blood Count 2.98 MIL/MM3 Hemoglobin 8.6 GM/DL Hematocrit 25.5 % Mean Corpuscular Volume 85.6 FL Mean Corpuscular Hemoglobin 28.9 PG Mean Corpuscular Hemoglobin 33.7 % Concent Red Cell Distribution Width 17.1 % Platelet Count 22 TH/MM3 Mean Platelet Volume 8.1 FL Neutrophils (%) (Auto) 24.2 % Lymphocytes (%) (Auto) 59.4 % Monocytes (%) (Auto) 11.3 % Eosinophils (%) (Auto) 4.8 % Basophils (%) (Auto) 0.3 % Neutrophils # (Auto) 0.2 TH/MM3 Lymphocytes # (Auto) 0.5 TH/MM3 Monocytes # (Auto) 0.1 TH/MM3 Eosinophils # (Auto) 0.0 TH/MM3 Basophils # (Auto) 0.0 TH/MM3 CBC Comment AUTO DIFF Differential Total Cells 100 Counted Neutrophils % (Manual) 14 % Lymphocytes % 72 % Monocytes % 7 % Eosinophils % 6 % Neutrophils # (Manual) 0.1 TH/MM3 Myelocytes 1 % Nucleated Red Blood Cells 10 /100 WBC Differential Comment FINAL DIFF MANUAL Platelet Estimate LOW Platelet Morphology Comment NORMAL Polychromasia 2.0 % Ovalocytes 1+ Prothrombin Time 10.6 SEC Prothromb Time International 1.0 RATIO Ratio Activated Partial 33.1 SEC Thromboplast Time Sodium Level 137 MEQ/L Potassium Level 4.4 MEQ/L Chloride Level 100 MEQ/L Carbon Dioxide Level 30.1 MEQ/L Anion Gap 7 MEQ/L Blood Urea Nitrogen 16 MG/DL Creatinine 0.96 MG/DL Estimat Glomerular Filtration 76 ML/MIN Rate Random Glucose 92 MG/DL Calcium Level 8.4 MG/DL Total Bilirubin 0.6 MG/DL Aspartate Amino Transf 34 U/L (AST/SGOT) Alanine Aminotransferase 24 U/L (ALT/SGPT) Alkaline Phosphatase 97 U/L Total Protein 7.0 GM/DL Albumin 3.3 GM/DL Thyroid Stimulating Hormone 1.850 uIU/ML [facility] Medical Decision Making Medical Screen Exam Complete: Yes Emergency Medical Condition: Yes Medical Record Reviewed: Yes Interpretation(s) Last Impressions Chest X-Ray 01/22/17 1311 Signed Impressions: Service Date/Time: Sunday, January 22, 2017 13:14 - CONCLUSION: Normal examination. Bharat Rosenbaum MD Neck CT 01/22/17 0000 Signed Impressions: Service Date/Time: Sunday, January 22, 2017 14:53 - CONCLUSION: 1. CT findings typical of generalized pharyngitis. No mass or abscess. 2. Borderline abnormal cervical lymphadenopathy, mainly by number. Nothing clearly pathologic by size criteria. Dandre Carvalho MD Chest CT 01/22/17 0000 Signed Impressions: Service Date/Time: Sunday, January 22, 2017 14:53 - CONCLUSION: 1. Mild left lower lobe pneumonia. 2. Upper limits of normal to mildly enlarged mediastinal lymph nodes, nonspecific. 3. Seen in the upper abdomen is fatty liver, right adrenal adenoma, probable left adrenal adenoma and a small left renal cyst. Dandre Carvalho MD 1615 p.m. CBC WBC 0.8. Hemoglobin 8.6 hematocrit 25.5. Platelet 22. 24 neutrophil. 59 lymphs. 11 monos. CMP within normal limit. Differential Diagnosis Fracture diagnosis including pharyngitis, neck mass, esophageal mass, esophageal obstruction, bronchitis, pneumonia. Narrative Course 76 years old male with severe sore throat, dysphagia. History of myelodysplasia. Normal saline solution 1 25 cc an hour. Cefepime 1 g IV. Zithromax 500 mg IV. Decadron 4 mg IV. Neupogen 300 mg subcutaneous. Spoke with Dr. Neal, oncologist on-call. agreed with the plan. Diagnosis Primary Impression: Pneumonia Qualified Code: J18.1 - Pneumonia of left lower lobe due to infectious organism Additional Impressions: Pharyngitis Qualified Code: J02.9 - Pharyngitis, unspecified etiology Neutropenic Qualified Code: D70.9 - Neutropenia, unspecified type Admitting Information Admitting Physician Requests: Admit Bakari Ritchie MD January 22, 2017 14:18
[2017-01-22] MEDS: SODIUM CHLOR 0.9% 1000 ML INJ 1,000 ML IV SCH ×3 (14:30→22:06)
[2017-01-22 14:41] LABS: CORRECTED NUCLEATED RBC 10 /100 WBC (0-0); EOSINOPHILS 6 % (0-4); MYELOCYTES 1 % (0-0); POLYS (SEG NEUTROPHILS) 14 % (16-70); WBC DIFF SAMPLE 100
[2017-01-22 14:47] LABS: NEUTROPHIL # MANUAL DIFF 0.1 TH/MM3 (1.8-7.7); PLATELET ESTIMATE SMEAR LOW (NORMAL); PLATELET MORPHOLOGY NORMAL (NORMAL); SCAN/DIFF FINAL DIFF MANUAL
[2017-01-22 14:48] LABS: OVALOCYTES 1+ (NORMAL)
[2017-01-22] MEDS ORDERED: IOHEXOL 350 MG/ML 10 ML VIAL (for RAD DIAG) IV ONE (14:59)
--- NOTE | 2017-01-22 15:25 | RADRPT ---
EXAM DATE/TIME: 01/22/2017 14:53 [facility] COMPARISON: CHEST SINGLE AP, January 22, 2017, 13:14. 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 IV CONTRAST: 67 cc Omnipaque 350 (iohexol) IV ; Cumulative dose for multiple exams. RADIATION DOSE: 5.94 CTDIvol (mGy) MEDICAL HISTORY : Leukemia. Carcinoma, bone. SURGICAL HISTORY : None. neutrapenia ENCOUNTER: Initial ACUITY: 1 day PAIN SCALE: 10/10 LOCATION: Bilateral neck throat TECHNIQUE: Volumetric scanning of the chest was performed. Using automated exposure control and adjustment of t he mA and/or kV according to patient size, radiation dose was kept as low as reasonably achievable to obtain optimal diagnostic quality images. FINDINGS: There is mild pneumonia posterolaterally in the left lower lobe, for example series 3 image 80. The l ungs are otherwise clear. No pleural effusion. No pneumothorax. There are subcarinal lymph nodes measuring up to 15 x 23 x 39 mm in size. Several several AP window lymph nodes measuring up to 11 mm in greatest short axis dimension. Subcentimeter lymph nodes are seen of both yana. No axillary lympha denopathy. Heart size is normal. There is coronary artery calcification, most conspicuous proximally of the left anterior descending. Upper abdomen only partly included on this study. There is fatty enlargement of the right adrena l gland and a 10 mm nonspecific nodule the left adrenal gland. There is a 12 mm mass of the upper raysa e the left kidney that is most likely a cyst. Liver is mild fatty infiltrated. CONCLUSION: 1. Mild left lower lobe pneumonia. 2. Upper limits of normal to mildly enlarged mediastinal lymph nodes, nonspecific. 3. Seen in the upper abdomen is fatty liver, right adrenal adenoma, probable left adrenal adenoma and a small left renal cyst. Dandre Carvalho MD on January 22, 2017 at 15:17 Board Certified Radiologist. This report was verified electronically.
--- NOTE | 2017-01-22 15:34 | RADRPT ---
EXAM DATE/TIME: 01/22/2017 14:53 [facility] COMPARISON: CT THORAX W CONTRAST, January 22, 2017, 14:53. INDICATIONS : Patient with leukemia with severe sore throat. IV CONTRAST: 67 cc Omnipaque 350 (iohexol) IV ; Cumulative dose for multiple exams. RADIATION DOSE: 5.94 CTDIvol (mGy) ; Combined studies MEDICAL HISTORY : Cardiovascular disease. Carcinoma, bone. Leukemia. Sepsis. Neutropenia SURGICAL HISTORY : ENCOUNTER: Initial ACUITY: 1 day PAIN SCALE: 10/10 LOCATION: Bilateral neck throat TECHNIQUE: Volumetric scanning of the neck was performed. Using automated exposure control and adjustment of th e mA and/or kV according to patient size, radiation dose was kept as low as reasonably achievable to obtain optimal diagnostic quality images. FINDINGS: Soft tissues of the posterior nasopharynx and oropharynx are of diffuse, mild to moderate edema. No m easurable mass. I don't see a rim enhancing fluid collection. There are small calcifications in the r egion of both lingual tonsils, probably within the crypts. The uvula appears thickened. The epiglotti s appears normal. Numerous jugulodigastric lymph nodes are present, all less than 1 cm in greatest short axis dimension . There is atherosclerotic plaque of both carotid bifurcations and probably at least mild stenosis of t he proximal left internal carotid artery. No evidence of significant narrowing on the right. CONCLUSION: 1. CT findings typical of generalized pharyngitis. No mass or abscess. 2. Borderline abnormal cervical lymphadenopathy, mainly by number. Nothing clearly pathologic by size criteria. Dandre Carvalho MD on January 22, 2017 at 15:26 Board Certified Radiologist. This report was verified electronically.
[2017-01-22 15:39] VITALS: BP 130/57; PULSE 79; RESP 18; O2SAT 96
[2017-01-22] MEDS ORDERED: CEFEPIME INJ 1,000 MG in SODIUM CHLORIDE 0.9% INJ 100 ML IV ONE (16:30)
[2017-01-22] MEDS ORDERED: DEXAMETHASONE SOD PHOS 4 MG/ML VIAL IV PUSH ONE (16:30)
[2017-01-22] MEDS ORDERED: AZITHROMYCIN INJ 500 MG in SODIUM CHLOR 0.9% 250 ML INJ 250 ML IV ONE (16:30)
[2017-01-22] MEDS ORDERED: FILGRASTIM 300 MCG/ML VIAL SQ ONE (16:30)
[2017-01-22] MEDS ORDERED: ACETAMINOPHEN 325 MG TAB PO PRN (16:45)
[2017-01-22] MEDS: DEXAMETHASONE SOD PHOS 4 MG/ML VIAL IV PUSH SCH ×2 (16:45→22:06)
--- NOTE | 2017-01-22 18:19 | HHI.HP ---
[facility] Cox MD Admission Diagnosis pneumonia. Pharyngitis. Neutropenic. Diagnoses: (1) Pneumonia Diagnosis: Principal (2) Pharyngitis Diagnosis: Principal (3) Neutropenic Diagnosis: Principal Chief Complaint: sore throat Travel History International Travel<30 Days: No Contact w/Intl Traveler <30 Da: No Traveled to Known Affected Are: No History of Present Illness patient is a 76 y/o male with history of MDS who was just discharged from the hospital after he was admitted with pancytopenia. he was discharged in a stable condition after he received PRBC transfusion. he says that when he went home he started to have sore throat. he also had some cough. he says that he has some phlegm but he can not 'bring it up'. he denies any fever, chills or sob. Review of Systems Constitutional: DENIES: Fever, Weight loss, Chills, Night Sweats Eyes: DENIES: Blurred vision, Diplopia, Vision loss, Double Vision Ears, nose, mouth, throat: COMPLAINS OF: Throat pain, DENIES: Tinnitus, Vertigo, Epistaxis Respiratory: COMPLAINS OF: Cough, DENIES: Apneas, Snoring, Wheezing, Hemoptysis, Sputum production, Shortness of breath Cardiovascular: DENIES: Chest pain, Palpitations, Syncope, Dyspnea on Exertion , PND, Lower Extremity Edema, Orthopnea, Claudication Gastrointestinal: DENIES: Abdominal pain, Black stools, Bloody stools, Constipation, Diarrhea, Nausea, Vomiting, Difficulty Swallowing, Anorexia Genitourinary: DENIES: Urinary frequency, Urgency, Hematuria, Dysuria Musculoskeletal: DENIES: Joint pain, Muscle aches, Stiffness, Joint Swelling Integumentary: DENIES: Rash Neurologic: DENIES: Abnormal gait, Headache, Localized weakness, Paresthesias, Seizures, Speech Problems, Tremor, Poor Balance Psychiatric: DENIES: Anxiety, Confusion, Mood changes, Depression, Hallucinations, Agitation, Suicidal Ideation, Homicidal Ideation, Delusions Past Family Social History Past Medical History MDS hypertension Past Surgical History knee surgery Reported Medications Benazepril (Benazepril HCl) 20 Mg Tab 20 Mg PO DAILY Finasteride 5 Mg Tab 5 Mg PO DAILY Do not crush. Pantoprazole (Pantoprazole Sodium) 40 Mg Tab 40 Mg PO DAILY Tamsulosin (Tamsulosin HCl) 0.4 Mg Cap 0.4 Mg PO HS Metoprolol Tartrate 25 Mg Tab 25 Mg PO DAILY Claritin (Loratadine) 10 Mg Cap 10 Mg PO DAILY Fish Oil ([place]-3 Fatty Acids) 500 Mg Cap Vitamin C & E 500-400 mg-Unit (Vitamins C & E) 1 Cap Cap Glucosamine Chondroitin (Tcylmcftevf-Rspinybghwf-Vhh C-) 1 Cap Cap Super B-Complex (B-Complex W/Biotin & Folic Acid) 1 Cap 1 Cap PO Aspirin 81 (Aspirin) 81 Mg Tabdr 81 Mg PO DAILY D3 2000 (Cholecalciferol) 2,000 Unit Tab Co Q 10 (Coenzyme Q10 (Ubidecarenone)) 10 Mg Cap Dhea 15-50 mg (Nutritional Supplements) 1 Cap Cap Magnesium 500 Mg Tab 500 Mg PO DAILY Allergies: Coded Allergies: Zofran (Verified Allergy, Severe, Hives, 01/17/17) Active Ordered Medications Current Medications Sodium Chloride (NS 1000 ml Inj) 1,000 ml @ 125 mls/hr Q8H IV Last administered on 01/22/17 14:30; Start 01/22/17 at 14:30 Iohexol 67 ml 67 ml STK-MED ONCE IV ; Start 01/22/17 at 14:59; Stop 01/22/17 at 15:00; Status DC Cefepime HCl 1000 mg/Sodium Chloride 100 ml @ 200 mls/hr ONCE ONCE IV Last administered on 01/22/17 17:04; Start 01/22/17 at 16:30; Stop 01/22/17 at 16:59 ; Status DC Azithromycin/ Sodium Chloride (Zithromax Inj/ NS 250 ml Inj) 250 ml @ 250 mls/ hr ONCE ONCE IV ; Start 01/22/17 at 16:30; Stop 01/22/17 at 17:29; Status DC Dexamethasone Sodium Phosphate 4 mg 4 mg ONCE ONCE IV PUSH Last administered on 01/22/17 17:04; Start 01/22/17 at 16:30; Stop 01/22/17 at 16:33; Status DC Sodium Chloride (NS 1000 ml Inj) 1,000 ml @ 100 mls/hr Q10H IV Last administered on 01/22/17t 17:03; Start 01/22/17 at 16:30 Filgrastim (Neupogen Inj) 300 mcg ONCE ONCE SQ ; Start 01/22/17 at 16:30; Stop 01/22/17 at 16:33; Status DC Acetaminophen 650 mg 650 mg Q4H PRN PO FEVER/PAIN 1-10; Start 01/22/17 at 16:45 Cefepime HCl 1000 mg/Sodium Chloride 100 ml @ 200 mls/hr Q12H IV ; Start at 05:00 Azithromycin/ Sodium Chloride (Zithromax Inj/ NS 250 ml Inj) 250 ml @ 250 mls/ hr Q24H IV ; Start 01/23/17 at 16:00 Dexamethasone Sodium Phosphate (Decadron Inj) 4 mg Q8HR IV PUSH ; Start at 16:45 Social History no smoking or drinking. Physical Exam Vital Signs Vital Signs Date Time Temp Pulse Resp B/P Pulse Ox O2 Delivery O2 Flow Rate FiO2 01/22/17 15:39 79 18 130/57 96 01/22/17 13:31 Room Air 01/22/17 12:42 98.5 92 24 145/65 95 Room Air Physical Exam GENERAL: This is a well-nourished, well-developed patient, in no apparent distress. SKIN: No rashes, ecchymoses or lesions. Cool and dry. HEAD: Atraumatic. Normocephalic. No temporal or scalp tenderness. EYES: Pupils equal round and reactive. Extraocular motions intact. No scleral icterus. No injection or drainage. ENT: Nose without bleeding, purulent drainage or septal hematoma. Throat with some erythema. NECK: Trachea midline. No JVD or lymphadenopathy. Supple, nontender, no meningeal signs. CARDIOVASCULAR: Regular rate and rhythm without murmurs, gallops, or rubs. RESPIRATORY: occasional bilateral rhonchi GASTROINTESTINAL: Abdomen soft, non-tender, nondistended. No hepato-splenomegaly , or palpable masses. No guarding. MUSCULOSKELETAL: Extremities without clubbing, cyanosis, or edema. No joint tenderness, effusion, or edema noted. No calf tenderness. Negative Homans sign bilaterally. NEUROLOGICAL: Awake and alert. Cranial nerves II through XII intact. Motor and sensory grossly within normal limits. Five out of 5 muscle strength in all muscle groups. Normal speech. Laboratory Laboratory Tests Test 01/22/17 13:20 White Blood Count 0.8 Red Blood Count 2.98 Hemoglobin 8.6 Hematocrit 25.5 Mean Corpuscular Volume 85.6 Mean Corpuscular Hemoglobin 28.9 Mean Corpuscular Hemoglobin 33.7 Concent Red Cell Distribution Width 17.1 Platelet Count 22 Mean Platelet Volume 8.1 Neutrophils (%) (Auto) 24.2 Lymphocytes (%) (Auto) 59.4 Monocytes (%) (Auto) 11.3 Eosinophils (%) (Auto) 4.8 Basophils (%) (Auto) 0.3 Neutrophils # (Auto) 0.2 Lymphocytes # (Auto) 0.5 Monocytes # (Auto) 0.1 Eosinophils # (Auto) 0.0 Basophils # (Auto) 0.0 CBC Comment AUTO DIFF Differential Total Cells 100 Counted Neutrophils % (Manual) 14 Lymphocytes % 72 Monocytes % 7 Eosinophils % 6 Neutrophils # (Manual) 0.1 Myelocytes 1 Nucleated Red Blood Cells 10 Differential Comment FINAL DIFF MANUAL Platelet Estimate LOW Platelet Morphology Comment NORMAL Polychromasia 2.0 Ovalocytes 1+ Prothrombin Time 10.6 Prothromb Time International 1.0 Ratio Activated Partial 33.1 Thromboplast Time Sodium Level 137 Potassium Level 4.4 Chloride Level 100 Carbon Dioxide Level 30.1 Anion Gap 7 Blood Urea Nitrogen 16 Creatinine 0.96 Estimat Glomerular Filtration 76 Rate Random Glucose 92 Calcium Level 8.4 Total Bilirubin 0.6 Aspartate Amino Transf 34 (AST/SGOT) Alanine Aminotransferase 24 (ALT/SGPT) Alkaline Phosphatase 97 Total Protein 7.0 Albumin 3.3 Thyroid Stimulating Hormone 1.850 3rd Gen Date/Time Procedure Status Source Growth 01/22/17 13:20 Group A Streptococcus Screen ([facility]) - Final Complete Throat 01/22/17 13:20 Group A Streptococcus Screen Received Throat Pending Result Diagram: 01/22/17 1320 01/22/17 1320 Imaging Last Impressions Chest X-Ray 01/22/17 1311 Signed Impressions: Service Date/Time: Sunday, January 22, 2017 13:14 - CONCLUSION: Normal examination. Bharat Rosenbaum MD Neck CT 01/22/17 0000 Signed Impressions: Service Date/Time: Sunday, January 22, 2017 14:53 - CONCLUSION: 1. CT findings typical of generalized pharyngitis. No mass or abscess. 2. Borderline abnormal cervical lymphadenopathy, mainly by number. Nothing clearly pathologic by size criteria. Dandre Carvalho MD Chest CT 01/22/17 0000 Signed Impressions: Service Date/Time: Sunday, January 22, 2017 14:53 - CONCLUSION: 1. Mild left lower lobe pneumonia. 2. Upper limits of normal to mildly enlarged mediastinal lymph nodes, nonspecific. 3. Seen in the upper abdomen is fatty liver, right adrenal adenoma, probable left adrenal adenoma and a small left renal cyst. Dandre Carvalho MD Assessment and Plan Assessment and Plan A/P -pharyngitis/ LLL pneumonia with pancytopenia due to MDS will continue with broad-spectrum IV antibiotics- received a dose of neupogen- will; start on IV steroid per oncology recommendation. consult oncology -hypertension; resume home meds -DVT prophylaxis with SCD's Discussed Condition With ER physician and the patient. Physician Certification 2 Midnight Certification Type: Admission for Inpatient Services Order for Inpatient Services The services are ordered in accordance with Medicare regulations or non- Medicare payer requirements, as applicable. In the case of services not specified as inpatient-only, they are appropriately provided as inpatient services in accordance with the 2-midnight benchmark. Estimated LOS (days): 2 days is the estimated time the patient will need to remain in the hospital, assuming treatment plan goals are met and no additional complications. Post-Hospital Plan: Home Problem Qualifiers (1) Pneumonia: Qualified Code: J18.1 - Pneumonia of left lower lobe due to infectious organism (2) Pharyngitis: Qualified Code: J02.9 - Pharyngitis, unspecified etiology (3) Neutropenic: Qualified Code: D70.9 - Neutropenia, unspecified type Ger Eller MD January 22, 2017 18:19
[2017-01-22 19:04] VITALS: BP 136/74; PULSE 79; RESP 16; O2SAT 96
[2017-01-22 20:00] VITALS: BP 141/65; PULSE 95; RESP 18; TEMP 97.5; O2SAT 95
[2017-01-22] MEDS: TAMSULOSIN HCL 0.4 MG CAP PO SCH (22:06)
[2017-01-23] VITALS: BP 111/56; PULSE 92; RESP 19; TEMP 96.2; O2SAT 94
[2017-01-23 04:00] VITALS: BP 145/84; PULSE 86; RESP 18; TEMP 96.3; O2SAT 95
[2017-01-23] MEDS: SODIUM CHLOR 0.9% 1000 ML INJ 1,000 ML IV SCH ×6 (05:10→21:08)
[2017-01-23] MEDS: CEFEPIME INJ 1,000 MG in SODIUM CHLORIDE 0.9% INJ 100 ML IV SCH ×2 (05:10→18:28)
[2017-01-23] MEDS: DEXAMETHASONE SOD PHOS 4 MG/ML VIAL IV PUSH SCH ×3 (05:10→21:02)
[2017-01-23 07:55] LABS: HEMATOCRIT 24.6 % (39.0-51.0); MEAN CELL VOLUME 85.5 FL (80.0-100.0); MEAN CORPUSCULAR HEMOGLOBIN 28.9 PG (27.0-34.0); MEAN CORPUSCULAR HGB CONC 33.8 % (32.0-36.0); PLATELET COUNT 23 TH/MM3 (150-450); RED BLOOD COUNT 2.88 MIL/MM3 (4.50-5.90); RED CELL DISTRIBUTION WIDTH 16.9 % (11.6-17.2); WHITE BLOOD COUNT 0.8 TH/MM3 (4.0-11.0)
[2017-01-23 07:58] LABS: HEMO FLAGS AUTO DIFF
[2017-01-23 08:00] VITALS: BP 126/67; PULSE 90; RESP 17; TEMP 96.9; O2SAT 97
[2017-01-23] MEDS: FINASTERIDE 5 MG TAB PO SCH (08:07)
[2017-01-23] MEDS: PANTOPRAZOLE SOD 40 MG DELAYED RELEASE TAB PO SCH (08:07)
[2017-01-23] MEDS: LISINOPRIL 20 MG TAB PO SCH (08:07)
[2017-01-23] MEDS: METOPROLOL TARTRATE 25 MG TAB PO SCH (08:07)
[2017-01-23] MEDS: LORATADINE 10 MG TAB PO SCH (08:07)
[2017-01-23 08:59] LABS: BANDS 10 % (0-6); CORRECTED NUCLEATED RBC 38 /100 WBC (0-0); EOSINOPHILS 2 % (0-4); NEUTROPHIL # MANUAL DIFF 0.4 TH/MM3 (1.8-7.7); PLATELET ESTIMATE SMEAR LOW (NORMAL); PLATELET MORPHOLOGY NORMAL (NORMAL); POLYS (SEG NEUTROPHILS) 42 % (16-70); SCAN/DIFF FINAL DIFF MANUAL; WBC DIFF SAMPLE 50
[2017-01-23 09:03] LABS: TEARDROP RBCS 1+ (NORMAL)
--- NOTE | 2017-01-23 10:41 | HHI.PR ---
Subjective Remarks looks and feels better today. sore throat has resolved. remains afebrile. no new complaints. Objective Vitals Vital Signs Date Time Temp Pulse Resp B/P Pulse Ox O2 Delivery O2 Flow Rate FiO2 01/23/17 08:00 96.9 90 17 126/67 97 01/23/17 04:00 96.3 86 18 145/84 95 01/23/17 00:00 96.2 92 19 111/56 94 01/22/17 20:00 97.5 95 18 141/65 95 01/22/17 19:04 79 16 136/74 96 01/22/17 15:39 79 18 130/57 96 01/22/17 13:31 Room Air 01/22/17 12:42 98.5 92 24 145/65 95 Room Air I/O 01/22/17 01/22/17 01/22/17 01/23/17 01/23/17 01/23/17 07:00 15:00 23:00 07:00 15:00 23:00 Intake Total 540 ml 1040 ml Balance 540 ml 1040 ml Intake Oral 240 ml 240 ml IV Total 300 ml 800 ml # Voids 2 1 Result Diagram: 01/23/17 0658 01/22/17 1320 Imaging Last Impressions Chest X-Ray 01/22/17 1311 Signed Impressions: Service Date/Time: Sunday, January 22, 2017 13:14 - CONCLUSION: Normal examination. Bharat Rosenbaum MD Neck CT 01/22/17 0000 Signed Impressions: Service Date/Time: Sunday, January 22, 2017 14:53 - CONCLUSION: 1. CT findings typical of generalized pharyngitis. No mass or abscess. 2. Borderline abnormal cervical lymphadenopathy, mainly by number. Nothing clearly pathologic by size criteria. Dandre Carvalho MD Chest CT 01/22/17 0000 Signed Impressions: Service Date/Time: Sunday, January 22, 2017 14:53 - CONCLUSION: 1. Mild left lower lobe pneumonia. 2. Upper limits of normal to mildly enlarged mediastinal lymph nodes, nonspecific. 3. Seen in the upper abdomen is fatty liver, right adrenal adenoma, probable left adrenal adenoma and a small left renal cyst. Dandre Carvalho MD Objective Remarks GENERAL: This is a well-nourished, well-developed patient, in no apparent distress. CARDIOVASCULAR: Regular rate and regular rhythm without murmurs, gallops, or rubs. RESPIRATORY: Clear to auscultation. Breath sounds equal bilaterally. No wheezes , rales, or rhonchi. GASTROINTESTINAL: Abdomen soft, non-tender, nondistended. Normal, active bowel sounds MUSCULOSKELETAL: Extremities without clubbing, cyanosis, or edema. NEURO: Alert & Oriented x4 to person, place, time, situation. Moves all ext x4 Procedures none Medications and IVs Current Medications Sodium Chloride (NS 1000 ml Inj) 1,000 ml @ 125 mls/hr Q8H IV Last administered on 01/22/17 14:30; Start 01/22/17 at 14:30 Iohexol 67 ml 67 ml STK-MED ONCE IV ; Start 01/22/17 at 14:59; Stop 01/22/17 at 15:00; Status DC Cefepime HCl 1000 mg/Sodium Chloride 100 ml @ 200 mls/hr ONCE ONCE IV Last administered on 01/22/17 17:04; Start 01/22/17 at 16:30; Stop 01/22/17 at 16:59 ; Status DC Azithromycin/ Sodium Chloride (Zithromax Inj/ NS 250 ml Inj) 250 ml @ 250 mls/ hr ONCE ONCE IV Last administered on 01/22/17 18:17; Start 01/22/17 at 16:30 ; Stop 01/22/17 at 17:29; Status DC Dexamethasone Sodium Phosphate 4 mg 4 mg ONCE ONCE IV PUSH Last administered on 01/22/17 17:04; Start 01/22/17 at 16:30; Stop 01/22/17 at 16:33; Status DC Sodium Chloride (NS 1000 ml Inj) 1,000 ml @ 100 mls/hr Q10H IV Last administered on 01/23/17 05:10; Start 01/22/17 at 16:30 Filgrastim (Neupogen Inj) 300 mcg ONCE ONCE SQ Last administered on 01/22/17 16:30; Start 01/22/17 at 16:30; Stop 01/23/17 at 08:22; Status DC Acetaminophen 650 mg 650 mg Q4H PRN PO FEVER/PAIN 1-10; Start 01/22/17 at 16:45 Cefepime HCl 1000 mg/Sodium Chloride 100 ml @ 200 mls/hr Q12H IV Last administered on 01/23/17 05:10; Start 01/23/17 at 05:00 Azithromycin/ Sodium Chloride (Zithromax Inj/ NS 250 ml Inj) 250 ml @ 250 mls/ hr Q24H IV ; Start 01/23/17 at 16:00 Dexamethasone Sodium Phosphate (Decadron Inj) 4 mg Q8HR IV PUSH Last administered on 01/23/17 05:10; Start 01/22/17 at 16:45 Lisinopril (Prinivil) 20 mg DAILY PO Last administered on 01/23/17 08:07; Start 01/23/17 at 09:00 Finasteride (Proscar) 5 mg DAILY PO Last administered on 01/23/17 08:07; Start 01/23/17 at 09:00 Loratadine (Claritin) 10 mg DAILY PO Last administered on 01/23/17 08:07; Start 01/23/17 at 09:00 Metoprolol Tartrate (Lopressor) 25 mg DAILY PO Last administered on 01/23/17 08:07; Start 01/23/17 at 09:00 Pantoprazole Sodium (Protonix) 40 mg DAILY PO Last administered on 01/23/17 08 :07; Start 01/23/17 at 09:00 Tamsulosin HCl (Flomax) 0.4 mg HS PO Last administered on 01/22/17 22:06; Start 01/22/17 at 21:00 A/P Assessment and Plan A/P -pharyngitis/ LLL pneumonia with pancytopenia due to MDS will continue with broad-spectrum IV antibiotics- received a dose of neupogen- continue IV steroids. consulted oncology. -hypertension; resumed home meds -DVT prophylaxis with SCD's Discharge Planning when cleared by oncology. Ger Eller MD January 23, 2017 10:41
[2017-01-23 12:00] VITALS: BP 140/59; PULSE 92; RESP 20; TEMP 97.7; O2SAT 95
[2017-01-23 16:00] VITALS: BP 140/59; PULSE 93; RESP 17; TEMP 97.6
[2017-01-23] MEDS: AZITHROMYCIN INJ 500 MG in SODIUM CHLOR 0.9% 250 ML INJ 250 ML IV SCH (16:20)
[2017-01-23] MEDS: TAMSULOSIN HCL 0.4 MG CAP PO SCH (21:02)
[2017-01-23 21:30] VITALS: BP 130/60; PULSE 68; RESP 18; TEMP 97.3; O2SAT 95
[2017-01-24 01:15] VITALS: BP 133/63; PULSE 63; RESP 16; TEMP 97.6; O2SAT 95
[2017-01-24 05:00] VITALS: BP 124/58; PULSE 65; RESP 16; TEMP 96.5; O2SAT 94
[2017-01-24] MEDS: DEXAMETHASONE SOD PHOS 4 MG/ML VIAL IV PUSH SCH ×3 (05:06→23:22)
[2017-01-24] MEDS: CEFEPIME INJ 1,000 MG in SODIUM CHLORIDE 0.9% INJ 100 ML IV SCH ×2 (05:07→17:17)
[2017-01-24] MEDS: SODIUM CHLOR 0.9% 1000 ML INJ 1,000 ML IV SCH ×5 (05:14→20:14)
--- NOTE | 2017-01-24 07:28 | MB ---
cc: JASWINDER SAMUELS M.D. DATE OF CONSULTATION 01/23/2017 REASON FOR CONSULTATION Consult requested by hospitalist for evaluation of pharyngitis in a patient who has myelodysplastic syndrome. HISTORY OF PRESENT ILLNESS Humberto is a pleasant 76-year-old male. He was recently diagnosed with high-grade myelodysplastic syndrome. He was started on Vidaza chemotherapy. The patient was admitted to the hospital for upper respiratory infection. This was treated with antibiotics and he was discharged to home on Monday. The patient is now readmitted to the hospital complaining of cough which is mostly dry. He has a severe sore throat as well. He had a CT scan of the soft tissue neck which showed pharyngitis. The patient is now admitted to the hospital. He is on the antibiotics. I have been asked to see the patient for further evaluation. The patient has been on the antibiotic and steroid and he states that his sore throat is improving. He previously had difficulty swallowing which has now almost resolved. He denies any fevers. He denies any nausea, vomiting, diarrhea or constipation. He still has cough which is mostly dry. The rest of the review of systems is negative. PAST MEDICAL HISTORY 1. COPD 2. Gastroesophageal reflux disease 3. BPH 4. High risk myelodysplastic syndrome 5. Hard of hearing 6. Hypertension 7. Peripheral vascular disease 8. Eczema PAST SURGICAL HISTORY 1. Carpal tunnel release 2. Colonoscopy 3. Vasectomy 4. Right knee surgery ALLERGIES ZOFRAN MEDICATIONS Please see EMR. FAMILY HISTORY Mother from old age. Father from prostate cancer with bone metastasis. The patient has two sisters, both are alive and well. He does not have any brothers. He has three sons and daughter all alive and well. SOCIAL HISTORY The patient is . He is a retired [employer]. He used to smoke cigarettes five packs a day for 30 years, but quit 45 years ago. He also used to drink alcohol, but quit 15 years ago. PHYSICAL EXAM This is a well-developed, well-nourished white male in no apparent distress. VITAL SIGNS: Temperature 96.9, heart rate is 90, blood pressure 126/67, O2 saturation 97%. HEENT: PERRLA, EOMI, anicteric. No oral lesions are noted. NECK: Supple. There is no cervical, supraclavicular, or axillary lymphadenopathy noted. LUNGS: Clear. No wheezing, rhonchi or rales. HEART: Regular rate and rhythm. ABDOMEN: Soft and nontender. No hepatosplenomegaly. EXTREMITIES: No pedal edema. NEUROLOGIC: Awake, alert, and oriented times three. SKIN: No significant lesions are noted. ASSESSMENT 1. High-grade myelodysplastic syndrome currently on Vidaza chemotherapy. 2. Pharyngitis which is improving. PLAN I have discussed with the patient regarding the CT scan of the chest and soft tissue of the neck findings. The CT of the chest shows a mild left lower lobe pneumonia. The CT of the soft tissues of the neck shows pharyngitis. The patient is currently on the antibiotics. Clinically, he is improving. His CBC today showed a white count of 0.8, hemoglobin 8.3, hematocrit 24.6, platelet count is 23. The patient was given Neupogen and I will stop that as he has high-grade myelodysplastic syndrome and Neupogen could result in transformation into acute leukemia. His absolute neutrophil count is only 400. Further recommendations based on his hospital stay. Thank you for asking my opinion. MD HUONG Tsai/NAEEM /9:44 PM /7:15 AM
[2017-01-24] MEDS: FINASTERIDE 5 MG TAB PO SCH (07:47)
[2017-01-24] MEDS: PANTOPRAZOLE SOD 40 MG DELAYED RELEASE TAB PO SCH (07:47)
[2017-01-24] MEDS: LORATADINE 10 MG TAB PO SCH (07:48)
[2017-01-24] MEDS: LISINOPRIL 20 MG TAB PO SCH (07:48)
[2017-01-24] MEDS: METOPROLOL TARTRATE 25 MG TAB PO SCH (07:48)
[2017-01-24 08:00] VITALS: BP 135/61; PULSE 66; RESP 20; TEMP 97.4; O2SAT 96
[2017-01-24 09:18] LABS: HEMATOCRIT 25.1 % (39.0-51.0); MEAN CELL VOLUME 86.2 FL (80.0-100.0); MEAN CORPUSCULAR HEMOGLOBIN 29.2 PG (27.0-34.0); MEAN CORPUSCULAR HGB CONC 33.9 % (32.0-36.0); PLATELET COUNT 21 TH/MM3 (150-450); RED BLOOD COUNT 2.91 MIL/MM3 (4.50-5.90); RED CELL DISTRIBUTION WIDTH 17.6 % (11.6-17.2); WHITE BLOOD COUNT 1.3 TH/MM3 (4.0-11.0)
--- NOTE | 2017-01-24 09:18 | HHI.PR ---
Subjective Remarks resting comfortably with no distress. no sore throat. has occasional cough with clear sputum. no fever. Objective Vitals Vital Signs Date Time Temp Pulse Resp B/P Pulse Ox O2 Delivery O2 Flow Rate FiO2 01/24/17 08:00 97.4 66 20 135/61 96 01/24/17 05:00 96.5 65 16 124/58 94 01/24/17 01:15 97.6 63 16 133/63 95 01/23/17 21:30 97.3 68 18 130/60 95 01/23/17 16:00 97.6 93 17 140/59 01/23/17 12:00 97.7 92 20 140/59 95 I/O 01/23/17 01/23/17 01/23/17 01/24/17 01/24/17 01/24/17 07:00 15:00 23:00 07:00 15:00 23:00 Intake Total 1040 ml 800 ml 875 ml 959 ml Output Total 0 ml 200 ml 560 ml Balance 1040 ml 800 ml 675 ml 399 ml Intake Oral 240 ml 800 ml 240 ml IV Total 800 ml 875 ml 719 ml Output Urine Total 200 ml 560 ml Stool Total 0 ml # Voids 1 5 Result Diagram: 01/23/17 0658 01/22/17 1320 Imaging Last Impressions Chest X-Ray 01/22/17 1311 Signed Impressions: Service Date/Time: Sunday, January 22, 2017 13:14 - CONCLUSION: Normal examination. Bharat Rosenbaum MD Neck CT 01/22/17 0000 Signed Impressions: Service Date/Time: Sunday, January 22, 2017 14:53 - CONCLUSION: 1. CT findings typical of generalized pharyngitis. No mass or abscess. 2. Borderline abnormal cervical lymphadenopathy, mainly by number. Nothing clearly pathologic by size criteria. Dandre Carvalho MD Chest CT 01/22/17 0000 Signed Impressions: Service Date/Time: Sunday, January 22, 2017 14:53 - CONCLUSION: 1. Mild left lower lobe pneumonia. 2. Upper limits of normal to mildly enlarged mediastinal lymph nodes, nonspecific. 3. Seen in the upper abdomen is fatty liver, right adrenal adenoma, probable left adrenal adenoma and a small left renal cyst. Dandre Carvalho MD Objective Remarks GENERAL: This is a well-nourished, well-developed patient, in no apparent distress. CARDIOVASCULAR: Regular rate and regular rhythm without murmurs, gallops, or rubs. RESPIRATORY: Clear to auscultation. Breath sounds equal bilaterally. No wheezes , rales, or rhonchi. GASTROINTESTINAL: Abdomen soft, non-tender, nondistended. Normal, active bowel sounds MUSCULOSKELETAL: Extremities without clubbing, cyanosis, or edema. NEURO: Alert & Oriented x4 to person, place, time, situation. Moves all ext x4 Procedures none Medications and IVs Current Medications Sodium Chloride (NS 1000 ml Inj) 1,000 ml @ 125 mls/hr Q8H IV Last administered on 01/22/17 14:30; Start 01/22/17 at 14:30 Iohexol 67 ml 67 ml STK-MED ONCE IV ; Start 01/22/17 at 14:59; Stop 01/22/17 at 15:00; Status DC Cefepime HCl 1000 mg/Sodium Chloride 100 ml @ 200 mls/hr ONCE ONCE IV Last administered on 01/22/17 17:04; Start 01/22/17 at 16:30; Stop 01/22/17 at 16:59 ; Status DC Azithromycin/ Sodium Chloride (Zithromax Inj/ NS 250 ml Inj) 250 ml @ 250 mls/ hr ONCE ONCE IV Last administered on 01/22/17 18:17; Start 01/22/17 at 16:30 ; Stop 01/22/17 at 17:29; Status DC Dexamethasone Sodium Phosphate 4 mg 4 mg ONCE ONCE IV PUSH Last administered on 01/22/17 17:04; Start 01/22/17 at 16:30; Stop 01/22/17 at 16:33; Status DC Sodium Chloride (NS 1000 ml Inj) 1,000 ml @ 100 mls/hr Q10H IV Last administered on 01/24/17 05:14; Start 01/22/17 at 16:30 Filgrastim (Neupogen Inj) 300 mcg ONCE ONCE SQ Last administered on 01/22/17 16:30; Start 01/22/17 at 16:30; Stop 01/23/17 at 08:22; Status DC Acetaminophen 650 mg 650 mg Q4H PRN PO FEVER/PAIN 1-10; Start 01/22/17 at 16:45 Cefepime HCl 1000 mg/Sodium Chloride 100 ml @ 200 mls/hr Q12H IV Last administered on 01/24/17 05:07; Start 01/23/17 at 05:00 Azithromycin/ Sodium Chloride (Zithromax Inj/ NS 250 ml Inj) 250 ml @ 250 mls/ hr Q24H IV Last administered on 01/23/17 16:20; Start 01/23/17 at 16:00 Dexamethasone Sodium Phosphate (Decadron Inj) 4 mg Q8HR IV PUSH Last administered on 01/24/17 05:06; Start 01/22/17 at 16:45 Lisinopril (Prinivil) 20 mg DAILY PO Last administered on 01/24/17 07:48; Start 01/23/17 at 09:00 Finasteride (Proscar) 5 mg DAILY PO Last administered on 01/24/17 07:47; Start 01/23/17 at 09:00 Loratadine (Claritin) 10 mg DAILY PO Last administered on 01/24/17 07:48; Start 01/23/17 at 09:00 Metoprolol Tartrate (Lopressor) 25 mg DAILY PO Last administered on 01/24/17 07:48; Start 01/23/17 at 09:00 Pantoprazole Sodium (Protonix) 40 mg DAILY PO Last administered on 01/24/17 07 :47; Start 01/23/17 at 09:00 Tamsulosin HCl (Flomax) 0.4 mg HS PO Last administered on 01/23/17 21:02; Start 01/22/17 at 21:00 A/P Assessment and Plan A/P -pharyngitis/ LLL pneumonia with pancytopenia due to MDS will continue with broad-spectrum IV antibiotics- received a dose of neupogen- continue IV steroids. oncology consult appreciated. -hypertension; resumed home meds -DVT prophylaxis with SCD's Discharge Planning when cleared by oncology. Ger Eller MD January 24, 2017 09:18
[2017-01-24] MEDS ORDERED: MAGNESIUM HYDROXIDE SUSP 30 ML CUP PO PRN (09:30)
[2017-01-24 09:38] LABS: HEMO FLAGS AUTO DIFF
[2017-01-24 10:27] LABS: ACANTHOCYTES OCC (NORMAL); BANDS 7 % (0-6); CORRECTED NUCLEATED RBC 28 /100 WBC (0-0); DOHLE BODIES PRESENT (NONE SEEN); EOSINOPHILS 2 % (0-4); METAMYELOCYTES 4 % (0-1); MYELOCYTES 1 % (0-0); NEUTROPHIL # MANUAL DIFF 0.6 TH/MM3 (1.8-7.7); POLYCHROMASIA 2.3 % (0.0-1.9); POLYS (SEG NEUTROPHILS) 36 % (16-70); WBC DIFF SAMPLE 100
[2017-01-24 10:28] LABS: PLATELET ESTIMATE SMEAR LOW (NORMAL); PLATELET MORPHOLOGY NORMAL (NORMAL)
[2017-01-24 10:29] LABS: OVALOCYTES 1+ (NORMAL); SCAN/DIFF FINAL DIFF MANUAL
[2017-01-24 12:00] VITALS: BP 149/65; PULSE 73; RESP 19; TEMP 96.6; O2SAT 95
--- NOTE | 2017-01-24 12:15 | PD.ONC.PN ---
Subjective Subjective Remarks Afebrile overnight. Patient continues to have wet cough. He otherwise feels much improved and states he has a lot more energy. Objective Data Date Time Temp Pulse Resp B/P Pulse Ox O2 Delivery O2 Flow Rate FiO2 01/24/17 08:00 97.4 66 20 135/61 96 01/24/17 05:00 96.5 65 16 124/58 94 01/24/17 01:15 97.6 63 16 133/63 95 01/23/17 21:30 97.3 68 18 130/60 95 01/23/17 16:00 97.6 93 17 140/59 Result Diagram: 01/24/17 0829 01/22/17 1320 Laboratory Results Laboratory Tests Test 01/24/17 08:29 White Blood Count 1.3 TH/MM3 Red Blood Count 2.91 MIL/MM3 Hemoglobin 8.5 GM/DL Hematocrit 25.1 % Mean Corpuscular Volume 86.2 FL Mean Corpuscular Hemoglobin 29.2 PG Mean Corpuscular Hemoglobin 33.9 % Concent Red Cell Distribution Width 17.6 % Platelet Count 21 TH/MM3 Mean Platelet Volume 8.2 FL Neutrophils (%) (Auto) % Lymphocytes (%) (Auto) % Monocytes (%) (Auto) % Eosinophils (%) (Auto) % Basophils (%) (Auto) % Neutrophils # (Auto) TH/MM3 Lymphocytes # (Auto) TH/MM3 Monocytes # (Auto) TH/MM3 Eosinophils # (Auto) TH/MM3 Basophils # (Auto) TH/MM3 CBC Comment AUTO DIFF Differential Total Cells 100 Counted Neutrophils % (Manual) 36 % Band Neutrophils % 7 % Lymphocytes % 47 % Monocytes % 3 % Eosinophils % 2 % Neutrophils # (Manual) 0.6 TH/MM3 Metamyelocytes 4 % Myelocytes 1 % Nucleated Red Blood Cells 28 /100 WBC Differential Comment FINAL DIFF MANUAL Atypical Lymphocytes % Dohle Bodies PRESENT Platelet Estimate LOW Platelet Morphology Comment NORMAL Polychromasia 2.3 % Basophilic Stippling MOD Ovalocytes 1+ Acanthocytes OCC Culture Results Microbiology Date/Time Procedure Status Source Growth 01/22/17 13:20 Group A Streptococcus Screen ([facility]ADA) - Final Complete Throat 01/22/17 13:20 Group A Streptococcus Screen - Final Complete Throat NO GP A BETA STREP ISOLATED. Administered Medications Medications (Trade) Dose Ordered Sig/Jim Route PRN Reason Start Time Stop Time Status Last Admin Dose Admin Sodium Chloride 1,000 ml @ 125 mls/hr Q8H IV 01/22/17 14:30 01/22/17 14:30 Sodium Chloride 1,000 ml @ 100 mls/hr Q10H IV 01/22/17 16:30 01/24/17 05:14 Cefepime HCl 1000 mg/Sodium Chloride 100 ml @ 200 mls/hr Q12H IV 01/23/17 05:00 01/24/17 05:07 Azithromycin/ Sodium Chloride (Zithromax Inj/ NS 250 ml Inj) 250 ml @ 250 mls/hr Q24H IV 01/23/17 16:00 01/23/17 16:20 Dexamethasone Sodium Phosphate (Decadron Inj) 4 mg Q8HR IV PUSH 01/22/17 16:45 01/24/17 05:06 Lisinopril (Prinivil) 20 mg DAILY PO 01/23/17 09:00 01/24/17 07:48 Finasteride (Proscar) 5 mg DAILY PO 01/23/17 09:00 01/24/17 07:47 Loratadine (Claritin) 10 mg DAILY PO 01/23/17 09:00 01/24/17 07:48 Metoprolol Tartrate (Lopressor) 25 mg DAILY PO 01/23/17 09:00 01/24/17 07:48 Pantoprazole Sodium (Protonix) 40 mg DAILY PO 01/23/17 09:00 01/24/17 07:47 Tamsulosin HCl (Flomax) 0.4 mg HS PO 01/22/17 21:00 01/23/17 21:02 Objective Remarks GENERAL: Elderly male, sitting up in chair in room in [facility]. SKIN: Warm and dry. HEAD: Normocephalic. EYES: No scleral icterus. No injection or drainage. NECK: Supple, trachea midline. CARDIOVASCULAR: Regular rate and rhythm RESPIRATORY: crackles heard at right base. anterior mchugh clear. + wet cough GASTROINTESTINAL: Abdomen soft, non-tender, nondistended. MUSCULOSKELETAL: No cyanosis, or edema. BACK: Nontender without obvious deformity Assessment/Plan Problem List: (1) Pancytopenia Status: Acute Plan: --High-grade myelodysplastic syndrome currently on Vidaza chemotherapy. --plan to continue Vidaza outpatient (2) Pneumonia Status: Acute Plan: 01/24: continue antibiotics. -- CT chest--> mild left lower lobe pneumonia. --CT soft tissue neck shows pharyngitis. --on Zithromax, Cefepime and Decadron --will avoid Neupogen as patient has high-grade myelodysplastic syndrome and Neupogen could result in transformation into acute leukemia. Assessment 76y/o with pharyngitis in a patient who has myelodysplastic syndrome. h/o COPD. Gastroesophageal reflux disease. BPH. High risk myelodysplastic syndrome. Hard of hearing. Hypertension. Peripheral vascular disease. Eczema Attending Statement still has cough with some phlegm. feels better. No Tx today. continue A/B will follow. The exam, history, and the medical decision-making described in the above note were completed with the assistance of the mid-level provider. I reviewed and agree with the findings presented. I attest that I had a [id number] encounter with the patient on the same day, and personally performed and documented my assessment and findings in the medical record. Problem Qualifiers (1) Pneumonia: Qualified Code: J18.1 - Pneumonia of left lower lobe due to infectious organism Re Jackson January 24, 2017 12:15 Amy Mayfield MD January 24, 2017 23:34
[2017-01-24] MEDS: AZITHROMYCIN INJ 500 MG in SODIUM CHLOR 0.9% 250 ML INJ 250 ML IV SCH (15:00)
[2017-01-24 16:00] VITALS: BP 153/64; PULSE 67; RESP 17; TEMP 97; O2SAT 95
[2017-01-24 20:25] VITALS: BP 128/60; PULSE 60; RESP 16; TEMP 96.9; O2SAT 97
[2017-01-24] MEDS: TAMSULOSIN HCL 0.4 MG CAP PO SCH (23:22)
[2017-01-25] VITALS: BP 165/73; PULSE 66; RESP 18; TEMP 97; O2SAT 98
[2017-01-25] MEDS: SODIUM CHLOR 0.9% 1000 ML INJ 1,000 ML IV SCH ×2 (04:30→05:26)
[2017-01-25 05:00] VITALS: BP 153/73; PULSE 92; RESP 18; TEMP 97.9; O2SAT 96
[2017-01-25] MEDS: CEFEPIME INJ 1,000 MG in SODIUM CHLORIDE 0.9% INJ 100 ML IV SCH (05:25)
[2017-01-25] MEDS: DEXAMETHASONE SOD PHOS 4 MG/ML VIAL IV PUSH SCH (05:25)
[2017-01-25 08:59] VITALS: BP 144/61; PULSE 74; RESP 16; TEMP 97; O2SAT 97
--- NOTE | 2017-01-25 08:59 | HHI.PR ---
Subjective Remarks resting comfortably with no distress. no fever. has occasional cough. wants to go home today. Objective Vitals Vital Signs Date Time Temp Pulse Resp B/P Pulse Ox O2 Delivery O2 Flow Rate FiO2 01/25/17 05:00 97.9 92 18 153/73 96 01/25/17 00:00 97.0 66 18 165/73 98 01/24/17 20:25 96.9 60 16 128/60 97 01/24/17 16:00 97.0 67 17 153/64 95 01/24/17 12:00 96.6 73 19 149/65 95 I/O 01/24/17 01/24/17 01/24/17 01/25/17 01/25/17 01/25/17 07:00 15:00 23:00 07:00 15:00 23:00 Intake Total 959 ml 480 ml 240 ml Output Total 560 ml 500 ml Balance 399 ml 480 ml -260 ml Intake Oral 240 ml 480 ml 240 ml IV Total 719 ml Output Urine Total 560 ml 500 ml # Voids 15 2 # Bowel Movements 1 Result Diagram: 01/24/17 0829 01/22/17 1320 Imaging Last Impressions Chest X-Ray 01/22/17 1311 Signed Impressions: Service Date/Time: Sunday, January 22, 2017 13:14 - CONCLUSION: Normal examination. Bharat Rosenbaum MD Neck CT 01/22/17 0000 Signed Impressions: Service Date/Time: Sunday, January 22, 2017 14:53 - CONCLUSION: 1. CT findings typical of generalized pharyngitis. No mass or abscess. 2. Borderline abnormal cervical lymphadenopathy, mainly by number. Nothing clearly pathologic by size criteria. Dandre Carvalho MD Chest CT 01/22/17 0000 Signed Impressions: Service Date/Time: Sunday, January 22, 2017 14:53 - CONCLUSION: 1. Mild left lower lobe pneumonia. 2. Upper limits of normal to mildly enlarged mediastinal lymph nodes, nonspecific. 3. Seen in the upper abdomen is fatty liver, right adrenal adenoma, probable left adrenal adenoma and a small left renal cyst. Dandre Carvalho MD Objective Remarks GENERAL: This is a well-nourished, well-developed patient, in no apparent distress. CARDIOVASCULAR: Regular rate and regular rhythm without murmurs, gallops, or rubs. RESPIRATORY: Clear to auscultation. Breath sounds equal bilaterally. No wheezes , rales, or rhonchi. GASTROINTESTINAL: Abdomen soft, non-tender, nondistended. Normal, active bowel sounds MUSCULOSKELETAL: Extremities without clubbing, cyanosis, or edema. NEURO: Alert & Oriented x4 to person, place, time, situation. Moves all ext x4 Procedures none Medications and IVs Current Medications Sodium Chloride (NS 1000 ml Inj) 1,000 ml @ 125 mls/hr Q8H IV Last administered on 01/22/17 14:30; Start 01/22/17 at 14:30 Iohexol 67 ml 67 ml STK-MED ONCE IV ; Start 01/22/17 at 14:59; Stop 01/22/17 at 15:00; Status DC Cefepime HCl 1000 mg/Sodium Chloride 100 ml @ 200 mls/hr ONCE ONCE IV Last administered on 01/22/17 17:04; Start 01/22/17 at 16:30; Stop 01/22/17 at 16:59 ; Status DC Azithromycin/ Sodium Chloride (Zithromax Inj/ NS 250 ml Inj) 250 ml @ 250 mls/ hr ONCE ONCE IV Last administered on 01/22/17 18:17; Start 01/22/17 at 16:30 ; Stop 01/22/17 at 17:29; Status DC Dexamethasone Sodium Phosphate 4 mg 4 mg ONCE ONCE IV PUSH Last administered on 01/22/17 17:04; Start 01/22/17 at 16:30; Stop 01/22/17 at 16:33; Status DC Sodium Chloride (NS 1000 ml Inj) 1,000 ml @ 100 mls/hr Q10H IV Last administered on 01/24/17 17:18; Start 01/22/17 at 16:30 Filgrastim (Neupogen Inj) 300 mcg ONCE ONCE SQ Last administered on 01/22/17 16:30; Start 01/22/17 at 16:30; Stop 01/23/17 at 08:22; Status DC Acetaminophen 650 mg 650 mg Q4H PRN PO FEVER/PAIN 1-10; Start 01/22/17 at 16:45 Cefepime HCl 1000 mg/Sodium Chloride 100 ml @ 200 mls/hr Q12H IV Last administered on 01/25/17 05:25; Start 01/23/17 at 05:00 Azithromycin/ Sodium Chloride (Zithromax Inj/ NS 250 ml Inj) 250 ml @ 250 mls/ hr Q24H IV Last administered on 01/24/17 15:00; Start 01/23/17 at 16:00 Dexamethasone Sodium Phosphate (Decadron Inj) 4 mg Q8HR IV PUSH Last administered on 01/25/17 05:25; Start 01/22/17 at 16:45 Lisinopril (Prinivil) 20 mg DAILY PO Last administered on 01/24/17 07:48; Start 01/23/17 at 09:00 Finasteride (Proscar) 5 mg DAILY PO Last administered on 01/24/17 07:47; Start 01/23/17 at 09:00 Loratadine (Claritin) 10 mg DAILY PO Last administered on 01/24/17 07:48; Start 01/23/17 at 09:00 Metoprolol Tartrate (Lopressor) 25 mg DAILY PO Last administered on 01/24/17 07:48; Start 01/23/17 at 09:00 Pantoprazole Sodium (Protonix) 40 mg DAILY PO Last administered on 01/24/17 07 :47; Start 01/23/17 at 09:00 Tamsulosin HCl (Flomax) 0.4 mg HS PO Last administered on 01/24/17 23:22; Start 01/22/17 at 21:00 Magnesium Hydroxide (Milk Of Magnesia Liq) 30 ml DAILY PRN PO CONSTIPATION; Start 01/24/17 at 09:30 A/P Assessment and Plan A/P -pharyngitis/ LLL pneumonia with pancytopenia due to MDS treated with broad-spectrum IV antibiotics and IV steroids- received a dose of neupogen- will switch to po augmentin and prednisone. oncology follow-up appreciated. -hypertension; resumed home meds -DVT prophylaxis with SCD's Discharge Planning cleared by oncology. will dc home today. see med list. d/w the patient and oncology. time spent 31 min. Ger Eller MD January 25, 2017 08:59
[2017-01-25] MEDS ORDERED: PRED5TAB PO (09:04)
[2017-01-25] MEDS ORDERED: AUGM875T PO (09:04)
[2017-01-25] MEDS: FINASTERIDE 5 MG TAB PO SCH (09:04)
--- NOTE | 2017-01-25 09:04 | HHI.DCPOC ---
Discharge Care Plan Diagnosis: (1) Pneumonia (2) Pharyngitis Your Health Problems Are: Cough Goals to Promote Your Health * To prevent worsening of your condition and complications * To maintain your health at the optimal level Directions to Meet Your Goals Take your medications as prescribed Follow your dietary instruction Follow activity as directed Keep your appointments as scheduled Take your immunizations and boosters as scheduled If your symptoms worsen call your PCP, if no PCP go to Urgent Care Center or Emergency Room Smoking is Dangerous to Your Health. Avoid second hand smoke Call the 24-hour hour crisis hotline for domestic abuse at Ger Eller MD January 25, 2017 09:04
[2017-01-25] MEDS: LORATADINE 10 MG TAB PO SCH (09:05)
[2017-01-25] MEDS: PANTOPRAZOLE SOD 40 MG DELAYED RELEASE TAB PO SCH (09:05)
[2017-01-25] MEDS: LISINOPRIL 20 MG TAB PO SCH (09:05)
--- NOTE | 2017-01-25 09:05 | HHI.DS ---
Discharge Summary Admission Date January 22, 2017 at 16:47 Discharge Date: January 25, 2017 Admitting Diagnosis pneumonia. Pharyngitis. Neutropenic. (1) Pneumonia ICD Code: J18.9 Diagnosis: Principal (2) Pharyngitis ICD Code: J02.9 Diagnosis: Principal (3) Neutropenic ICD Code: D70.9 Diagnosis: Principal Procedures none Brief History - From Admission patient is a 76 y/o male with history of MDS who was just discharged from the hospital after he was admitted with pancytopenia. he was discharged in a stable condition after he received PRBC transfusion. he says that when he went home he started to have sore throat. he also had some cough. he says that he has some phlegm but he can not 'bring it up'. he denies any fever, chills or sob. CBC/BMP: 01/24/17 0829 01/22/17 1320 Significant Findings Laboratory Tests Test 01/22/17 01/23/17 01/24/17 13:20 06:58 08:29 White Blood Count 0.8 TH/MM3 0.8 TH/MM3 1.3 TH/MM3 (4.0-11.0) (4.0-11.0) (4.0-11.0) Red Blood Count 2.98 MIL/MM3 2.88 MIL/MM3 2.91 MIL/MM3 (4.50-5.90) (4.50-5.90) (4.50-5.90) Hemoglobin 8.6 GM/DL 8.3 GM/DL 8.5 GM/DL (13.0-17.0) (13.0-17.0) (13.0-17.0) Hematocrit 25.5 % 24.6 % 25.1 % (39.0-51.0) (39.0-51.0) (39.0-51.0) Platelet Count 22 TH/MM3 23 TH/MM3 21 TH/MM3 (150-450) (150-450) (150-450) Lymphocytes (%) (Auto) 59.4 % (9.0-44.0) Monocytes (%) (Auto) 11.3 % (0.0-8.0) Eosinophils (%) (Auto) 4.8 % (0.0-4.0) Neutrophils # (Auto) 0.2 TH/MM3 (1.8-7.7) Lymphocytes # (Auto) 0.5 TH/MM3 (1.0-4.8) Neutrophils % (Manual) 14 % (16-70) Lymphocytes % 72 % (9-44) 47 % (9-44) Eosinophils % 6 % (0-4) Neutrophils # (Manual) 0.1 TH/MM3 0.4 TH/MM3 0.6 TH/MM3 (1.8-7.7) (1.8-7.7) (1.8-7.7) Myelocytes 1 % (0-0) 1 % (0-0) Nucleated Red Blood Cells 10 /100 WBC 38 /100 WBC 28 /100 WBC (0-0) (0-0) (0-0) Platelet Estimate LOW (NORMAL) LOW (NORMAL) LOW (NORMAL) Polychromasia 2.0 % (0.0-1.9) 2.3 % (0.0-1.9) Ovalocytes 1+ (NORMAL) 1+ (NORMAL) Activated Partial 33.1 SEC Thromboplast Time (24.3-30.1) Estimat Glomerular Filtration 76 ML/MIN (>89) Rate Calcium Level 8.4 MG/DL (8.5-10.1) Albumin 3.3 GM/DL (3.4-5.0) Band Neutrophils % 10 % (0-6) 7 % (0-6) Tear Drop Cells 1+ (NORMAL) Red Cell Distribution Width 17.6 % (11.6-17.2) Metamyelocytes 4 % (0-1) Dohle Bodies PRESENT (NONE SEEN) Basophilic Stippling MOD (NORMAL) Imaging Last Impressions Chest X-Ray 01/22/17 1311 Signed Impressions: Service Date/Time: Sunday, January 22, 2017 13:14 - CONCLUSION: Normal examination. Bharat Rosebnaum MD Neck CT 01/22/17 0000 Signed Impressions: Service Date/Time: Sunday, January 22, 2017 14:53 - CONCLUSION: 1. CT findings typical of generalized pharyngitis. No mass or abscess. 2. Borderline abnormal cervical lymphadenopathy, mainly by number. Nothing clearly pathologic by size criteria. Dandre Carvalho MD Chest CT 01/22/17 0000 Signed Impressions: Service Date/Time: Sunday, January 22, 2017 14:53 - CONCLUSION: 1. Mild left lower lobe pneumonia. 2. Upper limits of normal to mildly enlarged mediastinal lymph nodes, nonspecific. 3. Seen in the upper abdomen is fatty liver, right adrenal adenoma, probable left adrenal adenoma and a small left renal cyst. Dandre Carvalho MD PE at Discharge GENERAL: This is a well-nourished, well-developed patient, in no apparent distress. CARDIOVASCULAR: Regular rate and regular rhythm without murmurs, gallops, or rubs. RESPIRATORY: Clear to auscultation. Breath sounds equal bilaterally. No wheezes , rales, or rhonchi. GASTROINTESTINAL: Abdomen soft, non-tender, nondistended. Normal, active bowel sounds MUSCULOSKELETAL: Extremities without clubbing, cyanosis, or edema. NEURO: Alert & Oriented x4 to person, place, time, situation. Moves all ext x4 Hospital Course -pharyngitis/ LLL pneumonia with pancytopenia due to MDS treated with broad-spectrum IV antibiotics and IV steroids- received a dose of neupogen- will switch to po augmentin and prednisone. oncology follow-up appreciated. -hypertension; resumed home meds -DVT prophylaxis with SCD's Pt Condition on Discharge: Good Discharge Disposition: Discharge Home Discharge Time: > 30 minutes Discharge Instructions DIET: Follow Instructions for: Heart Healthy Diet Activities you can perform: Regular-No Restrictions Follow up Referrals: Oncology PCP Follow-up New Medications: Amoxicillin-Clavulanate (Augmentin) 875-125 mg Tab 875 MG PO BID not for use in CrCl <30 ml/min. Infection #10 Ref 0 TAB Prednisone (Prednisone) 5 Mg Tab 5 MG PO DIRECTED 40 mg po daily for two days then 30 mg po daily for two days then 20 mg po daily for two days then 10 mg po daily for two days then 5 mg po daily for two days then stop. Inflammation Days 10 Ref 0 TAB Continued Medications: Aspirin DR (Aspirin 81) 81 Mg Tabdr 81 MG PO DAILY Ref 0 TAB B-Complex W/Biotin & Folic Acid (Super B-Complex) 1 Cap 1 CAP PO #1 BOTTLE Benazepril (Benazepril) 20 Mg Tab 20 MG PO DAILY Blood Pressure Management #30 Ref 0 TAB Cholecalciferol (D3 2000) 2,000 Unit Tab Coenzyme Q10 (Ubidecarenone) (Co Q 10) 10 Mg Cap Finasteride (Finasteride) 5 Mg Tab 5 MG PO DAILY Do not crush. Manage Prostate Problems #30 Ref 0 TAB Fabxqkbgntk-Fykhlghgfkb-Iiv C- (Glucosamine Chondroitin) 1 Cap Cap Loratadine (Claritin) 10 Mg Cap 10 MG PO DAILY Allergy Management Ref 0 CAP Magnesium (Magnesium) 500 Mg Tab 500 MG PO DAILY Nutritional Supplement Ref 0 TAB Metoprolol Tartrate (Metoprolol Tartrate) 25 Mg Tab 25 MG PO DAILY #30 Ref 0 TAB Nutritional Supplements (Dhea 15-50 mg) 1 Cap Cap [place]-3 Fatty Acids (Fish Oil) 500 Mg Cap Pantoprazole (Pantoprazole) 40 Mg Tab 40 MG PO DAILY Reflux #30 Ref 0 TAB Tamsulosin (Tamsulosin) 0.4 Mg Cap 0.4 MG PO HS Manage Prostate Problems #30 Ref 0 CAP Vitamins C & E (Vitamin C & E 500-400 mg-Unit) 1 Cap Cap Discontinued Medications: Cephalexin (Keflex) 500 Mg Cap 500 MG PO Q6H Infection #20 Ref 0 CAP Ger Eller MD January 25, 2017 09:05
[2017-01-25] MEDS: METOPROLOL TARTRATE 25 MG TAB PO SCH (09:06)
--- NOTE | 2017-01-25 11:31 | PD.ONC.PN ---
Subjective Subjective Remarks Pt seen and examined this am at 8am. Afebrile overnight. Pt sitting up in chair at bedside wearing regular clothes. He tells me he is going home today. No complaints. Feels "100% better." Objective Data Date Time Temp Pulse Resp B/P Pulse Ox O2 Delivery O2 Flow Rate FiO2 01/25/17 08:59 97.0 74 16 144/61 97 01/25/17 05:00 97.9 92 18 153/73 96 01/25/17 00:00 97.0 66 18 165/73 98 01/24/17 20:25 96.9 60 16 128/60 97 01/24/17 16:00 97.0 67 17 153/64 95 01/24/17 12:00 96.6 73 19 149/65 95 Result Diagram: 01/24/17 0829 01/22/17 1320 Culture Results Microbiology Date/Time Procedure Status Source Growth 01/22/17 13:20 Group A Streptococcus Screen (GHADA) - Final Complete Throat 01/22/17 13:20 Group A Streptococcus Screen - Final Complete Throat NO GP A BETA STREP ISOLATED. Objective Remarks GENERAL: Elderly male, sitting up in chair at bedside in no distress. Appears well. SKIN: Warm and dry. HEAD: Normocephalic. EYES: No scleral icterus. No injection or drainage. NECK: Supple, trachea midline. CARDIOVASCULAR: +S1/S2. RESPIRATORY: Clear, diminished posteriorly. Non-labored. GASTROINTESTINAL: Abdomen soft. Non-tender. MUSCULOSKELETAL: No cyanosis, or edema. NEUROVASCULAR: A&Ox3. Normal speech. Moving all extremities. 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 --plan to continue Vidaza outpatient (2) Pneumonia Status: Acute Plan: 01/25: Pt appears well. Counts all improving. SOB, cough improved. OK for discharge from hematology standpoint. Will schedule pt for hospital followup later this week or early next week in clinic. 01/24: continue antibiotics. -- CT chest--> mild left lower lobe pneumonia. --CT soft tissue neck shows pharyngitis. --on Zithromax, Cefepime and Decadron --will avoid Neupogen as patient has high-grade myelodysplastic syndrome and Neupogen could result in transformation into acute leukemia. Assessment 76y/o with pharyngitis in a patient who has myelodysplastic syndrome. h/o COPD. Gastroesophageal reflux disease. BPH. High risk myelodysplastic syndrome. Hard of hearing. Hypertension. Peripheral vascular disease. Eczema Problem Qualifiers (1) Pneumonia: Qualified Code: J18.1 - Pneumonia of left lower lobe due to infectious organism Tana Olguin January 25, 2017 11:31
== END 2017-01-25 10:55 | disposition home or self-care (01) | DRG 190 ==
LOC: NEPE 12:41 → NEDA 16:47 → HOCB 19:56
PROVIDERS: ADMIT Internal Medicine; ATTEND Internal Medicine
DX: J44.0 Chronic obstructive pulmonary disease with (acute) lower respiratory infection (principal); J18.9 Pneumonia, unspecified organism; D61.818 Other pancytopenia; D46.9 Myelodysplastic syndrome, unspecified; J02.9 Acute pharyngitis, unspecified; I10 Essential (primary) hypertension; K21.9 Gastro-esophageal reflux disease without esophagitis; N40.0 Benign prostatic hyperplasia without lower urinary tract symptoms; I73.9 Peripheral vascular disease, unspecified; H91.90 Unspecified hearing loss, unspecified ear; L30.9 Dermatitis, unspecified; Z87.891 Personal history of nicotine dependence
CPT/HCPCS: 70491; 71010; 71260; 80053; 84443; 85007; 85027; 85610; 85730; 87081; 87880; 96360; 96372; J0456; J0692; J1100; J1442; J7030; J7050; Q9967